=== PATIENT | female | born 1995 | race Caucasian/White ===

== ENCOUNTER → 2020-12-10 10:45 | Outpatient (CLI) | payer OTHER, BC, SELFPAY ==
[2020-11-27 08:24] VITALS: BMI 40.9
--- NOTE | 2020-12-10 10:46 | MRI_ITS ---
STUDY: EXAMINATION - MRV BRAIN WITHOUT CONTRAST REASON FOR EXAM: Female, 25 years old. Pseudotumor Cerebri- comps from [facility] should be available TECHNIQUE: 3D [id number] (TOF) imaging was performed in a 1.5 mansi MRI scanner. COMPARISON: MRI brain with and without contrast 11/13/2020. FINDINGS: Normal flow within the superior sagittal sinus. Normal flow within the superficial cortical veins. Normal flow within the paired internal cerebral veins, vein of Godwin and straight sinus. Normal flow within the bilateral transverse and sigmoid sinuses. Normal flow within the bilateral jugular bulbs. Focal DVA in the right cerebellar hemisphere is also present on the MRI brain with and without contrast 11/13/2020. MRI/MRV Head Without Contrast IMPRESSION: 1. Normal unenhanced MRV of the brain. 2. Focal DVA (developmental venous anomaly) in the right cerebellar hemisphere, a developmental variation of normal. This is unchanged when compared to outside MRI brain with and without contrast of 11/13/2020 Electronically Signed: Pancho Guerrero MD at 15:16 EDT , Service support ,
== END ==
PROVIDERS: PCP Family Medicine; Referring Provider Psychiatry & Neurology Neurology; Visit Provider Psychiatry & Neurology Neurology
DX: G93.2 Benign intracranial hypertension (principal)
CPT/HCPCS: 70544

== ENCOUNTER → 2020-12-11 09:07 | Outpatient (CLI) | payer BC, OTHER, SELFPAY ==
[2020-11-27 08:24] VITALS: BMI 40.9
[2020-12-11 10:28] LABS: Hematocrit 44.9 % (37-47); Hemoglobin 14.6 g/dL (12.0-15.0); Mean Corp Hgb Conc 32.5 g/dL (32-36); Mean Corpuscular Hgb 28.3 pg (27.0-32.0); Mean Corpuscular Volume 87.2 fL (81-99); Mean Platelet Vol. 12.2 fl (6.2-12.0); Platelet Count 317 K/mm3 (150-450); RBC Distribution Width CV 13.4 % (11.6-14.6); RBC Distribution Width SD 42.8 fl (35.1-43.9); Red Blood Count 5.15 M/mm3 (4.2-5.4); White Blood Count 8.4 K/mm3 (4.4-11.0)
[2020-12-11 11:05] LABS: AST(SGOT) 12 U/L (15-37); Alanine Aminotransfer ALT/SGPT 25 U/L (13-56); Albumin, Serum 3.7 g/dL (3.2-5.0); Alkaline Phosphatase 99 U/L (45-117); Anion Gap 6 (5-15); BUN 12 mg/dL (7-18); BUN/Creat Ratio 14.8 RATIO (10-20); Calcium,Total 8.9 mg/dL (8.5-10.1); Chloride 111 mmol/L (98-107); Creatinine, Serum 0.81 mg/dL (0.55-1.02); EST Glomerular Filtration Rate 92 mL/min (>60); Est Glom Filt Rate - Afr Amer 111 mL/min (>60); Globulin 3.8 g/dL (2.2-4.2); Glucose 83 mg/dL (74-106); Protein, Total 7.5 g/dL (6.4-8.2); Sodium Level 140 mmol/L (136-145); Thyroid Stim Hormone (TSH) 0.68 uIU/mL (0.358-3.74)
== END ==
PROVIDERS: PCP Family Medicine; Referring Provider Psychiatry & Neurology Neurology; Visit Provider Psychiatry & Neurology Neurology
DX: G93.2 Benign intracranial hypertension (principal); E66.9 Obesity, unspecified
CPT/HCPCS: 36415; 80053; 84443; 85027

== ENCOUNTER 2021-12-19 02:21 | Emergency (ER) | payer BC, SELFPAY ==
[2021-12-19 02:23] VITALS: BP 103/63; PULSE 138; RESP 16; TEMP 37.4; O2SAT 100; BMI 41.5
--- NOTE | 2021-12-19 02:41 | EX.ED.DYSGE1 ---
HPI History of Present Illness Chief Complaint: General Illness Detail of Chief Complaint: Fever that started yesterday Informant: patient Narrative Narrative: Patient presents with a fever that started last evening. She states that she had some chills around 2 PM yesterday. Patient recalls having a tick bite to her right calf 2 days ago but there is no evidence of a rash. She is had some nausea but no vomiting. She denies diarrhea. She describes minimal sore throat. She denies cough. She does complain of a headache and body aches. Prior similar symptoms: No PFSH PFSH Medical History (Updated 12/19/21 @ 03:[address] Margarito Lainez, DO) Asthma History of lumbar puncture Polycystic disease, ovaries Home Medications NK 12/19/21 [History Last Taken Unknown] doxycycline monohydrate 100 mg PO BID #28 capsule 12/19/21 [Rx Last Taken Unknown] sulfamethoxazole-trimethoprim 1 tab PO BID #6 tablet 12/19/21 [Rx Last Taken Unknown] Allergy/AdvReac Type Severity Reaction Status Date / Time acetaminophen AdvReac Unknown Unknown Verified 12/19/21 02:25 Family History (Updated 11/27/20 @ 08:20 by Cyndee Hernandez) Brother Pseudotumor cerebri Grandfather CVA (cerebral vascular accident) Social History (Updated 11/27/20 @ 08:19 by Cyndee Hernandez) Smoking Status: Never smoker Electronic Cigarette Use: not used second hand exposure: Yes alcohol intake: current alcohol intake frequency: holidays/special occasions only substance use type: does not use ROS ROS ED Constitutional Constitutional ED: Reports systems reviewed and no addt'l complaints, except as documented and fever(s); Denies body ache(s), change in weight or chills Eyes Eyes: Denies acute decrease in peripheral vision, change in vision, double vision or loss of vision ENT ENT ED: Reports none and sore throat; Denies ear pain, lip swelling, loss taste/smell, neck pain or otalgia Cardiovascular Cardiovascular: Reports none; Denies abdominal pain, chest pain with activity, leg edema, lightheadedness, palpitations, rapid heart rate or syncope Respiratory/Chest Respiratory/Chest: Reports none; Denies change in mental status, dry cough, dyspnea, hemoptysis, shortness of breath at rest or shortness of breath with exertion Gastrointestinal Gastrointestinal: Reports none; Denies abdominal pain, change in stool character, diarrhea, hematemesis, hematochezia, melena, rectal bleeding or vomiting Genitourinary Genitourinary ED: Reports none; Denies abdominal discomfort, anuria, dysuria, genital pain or polyuria Musculoskeletal Musculoskeletal: Reports none and myalgias; Denies arthralgias, back pain, difficulty walking, extremity pain or muscle weakness Integumentary Reports none; Denies abscess or rash Neurologic Neurologic: Reports none and headache(s); Denies abnormal gait, confusion, focal weakness, frequent falls, loss of vision, numbness, paresthesias, radicular pain, vertigo or weakness Psychiatric Psychiatric: Reports systems reviewed and no addt'l complaints, except as documented and none; Denies behavioral changes, confusion, difficulty concentrating, hallucinations, suicidal ideation, tactile hallucinations or visual hallucinations Endocrine Endocrinology: Denies none, cold intolerance, excessive sweating, fatigue or heat intolerance Hematologic/Lymphatic Hematologic/Lymphatic: Reports none; Denies anemia, easy bleeding or easy bruising Allergic/Immunologic Allergic/Immunologic ED: Denies as per HPI, none, lip swelling, mouth swelling, throat swelling, tongue swelling or hives EXAM Physical Exam Const Vital Signs: 12/19/21 02:23 12/19/21 02:27 Temperature 99.3 F H Temperature Source Oral Pulse Rate 138 H Respiratory Rate 16 Respiratory Effort Normal Non-Labored Respiratory Pattern Normal Blood Pressure 103/63 Blood Pressure Mean 76 Pulse Ox 100 Oxygen Delivery Method Room Air Positive well nourished and well developed General Appearance ED: well developed and NAD HEENT Reports TM's clear and moist mucous membranes normocephalic and atraumatic; Negative for trauma or tenderness Tympanic Membrane ED: Yes TM's clear Eyes PERRL and EOMs intact bilaterally General Eye ED: Negative for pale conjunctiva or scleral icterus Neck no lymphadenopathy, supple and no JVD General: Negative for tenderness Chest Wall inspection of chest normal and palpation of chest normal Chest: Negative for tenderness Resp normal respiratory effort and clear to auscultation bilaterally Effort and Inspection: Negative for respiratory distress or pain with movement Auscultation: Negative for rhonchi, wheezes or diminished lung sounds Cardio regular rate, regular rhythm, S1 normal heart sound, S2 normal heart sound and no murmurs Peripheral Pulses: pulses 2+ throughout GI normal to inspection, nondistended, normoactive bowel sounds, soft to palpation, non-tender, non-distended and no masses Back/Spine no CVA tenderness and no thoracic nor lumbar tenderness Extremity Extremity Narrative: Evaluation of the right calf reveals no evidence of rash or bull's-eye sign. General Extremety ED: Negative for edema General Extremity: Negative for edema Neuro oriented x3, CN's II-XII intact bilaterally, no sensory deficits noted and gait normal Sensorium / Orientation: awake, alert, oriented to person, oriented to place and oriented to time Motor Exam: strength 5/5 throughout and strength abnormal Psych mental status grossly normal Skin no rashes or lesions noted and no wounds MDM MDM MDM Narrative Medical decision making narrative: Patient had an influenza screen and a COVID test that were both negative. Urinalysis was significant for 500 cassette esterase as well as 50-100 WBCs and +4 bacteria. Urine culture was sent. Specimen unfortunately also had 25-50 squamous epithelial cells. Patient will be treated with Bactrim and Pyridium. Patient advised to follow-up with her primary care physician in 3 to 5 days to get her culture results and Lyme titer results. Patient will also start doxycycline given her tick exposure. Lab Data Attestation: I reviewed the patient's lab results. Labs: Laboratory Results - last 24 hr 12/19/21 02:45 Urine Color Yellow Urine Clarity Cloudy Urine pH 7.0 Ur Specific [place] 1.015 Urine Protein 15 H Urine Glucose (UA) Normal Urine Ketones Negative Urine Occult Blood 150 H Urine Nitrite Negative Urine Bilirubin Negative Urine Urobilinogen Normal Ur Leukocyte Esterase 500 H Urine RBC 10-25 SEEN Urine WBC 50-100 SEEN Ur Squamous Epith Cells 25-50 SEEN Urine Bacteria 4+ Urine Mucus 0 SEEN Discharge Plan Triage Chief Complaint: General Illness ED Provider: Margarito Lainez Dx/Rx/DC Orders Clinical Impression: UTI (urinary tract infection), Tick bite Instructions: ED Tick Bite, Abx Tx, ED CYSTITIS Female Adult Prescriptions: New sulfamethoxazole-trimethoprim [sulfamethoxazole-trimethoprim] 1 TABLET tablet 1 tab PO BID Qty: 6 RF: 0 doxycycline monohydrate 100 MG capsule 100 mg PO BID Qty: 28 RF: 0 No Action NK RF: 0 Primary Care Provider: Russ Euceda Referrals: Russ Euceda DO [Primary Care Provider] - 3-5 Days Disposition Disposition: Home, Self Care
[2021-12-19 03:01] LABS: Color, Urine Yellow (Yellow); Glucose, Dipstick Normal (Normal); Ketone-Dipstick Negative (Negative); Leukocyte Esterase-Dipstick 500 /ul (Negative); Mucous, Urine 0 SEEN /hpf (<or=2+); Nitrite-Dipstick Negative (Negative); Occult Blood-Urine 150 /ul (Negative); Protein-Dipstick 15 mg/dl (Negative); Specific Gravity, Urine 1.015 (1.002-1.030); Urine Bilirubin Dipstick Negative (Negative); Urine Clarity Cloudy (Clear); Urine Urobilinogen Normal (Normal)
[2021-12-19 03:25] LABS: Bacteria 4+ /hpf (None Seen); Red Blood Cells-Urine 10-25 SEEN /hpf (0-5); Squamous Epithelial Cells - UA 25-50 SEEN /hpf (5-10); White Blood Cells 50-100 SEEN /hpf (0-5)
[2021-12-19 03:47] LABS: Lyme Ab Screen Interpretation REF LAB
[2021-12-19] MEDS: Phenazopyridine 95 MG Tablet 190 MG PO (03:47)
[2021-12-19] MEDS: Doxycycline 100 MG CAPSULE PO (03:48)
[2021-12-19] MEDS: Smz/Tmp Ds Tablet 1 TABLET PO (03:48)
[2021-12-19 03:51] VITALS: BP 102/60; PULSE 110; RESP 16; O2SAT 96
[2021-12-20 20:46] LABS: Lyme Scn Total Ab w/Rflx Negative (Negative)
== END 2021-12-19 03:51 | disposition home or self-care (01) ==
PROVIDERS: Emergency Provider Emergency Medicine; PCP Family Medicine; Visit Provider Emergency Medicine
DX: N39.0 Urinary tract infection, site not specified (principal); J45.909 Unspecified asthma, uncomplicated; E28.2 Polycystic ovarian syndrome; S80.861A Insect bite (nonvenomous), right lower leg, initial encounter; W57.XXXA Bitten or stung by nonvenomous insect and other nonvenomous arthropods, initial encounter
CPT/HCPCS: 81001; 86618; 87086; 87088; 87428; 99283

== ENCOUNTER 2022-06-24 17:03 | Outpatient (CLI) | payer BC, SELFPAY ==
[2022-06-24 17:21] LABS: Hematocrit 41.8 % (37-47); Hemoglobin 13.8 g/dL (12.0-15.0); Mean Corpuscular Hgb 27.7 pg (27.0-32.0); Mean Corpuscular Volume 83.9 fL (81-99); Mean Platelet Vol. 11.3 fl (6.2-12.0); Platelet Count 312 K/mm3 (150-450); RBC Distribution Width SD 39.8 fl (35.1-43.9); Red Blood Count 4.98 M/mm3 (4.2-5.4); White Blood Count 10.5 K/mm3 (4.4-11.0)
[2022-06-24 17:50] LABS: Vitamin B12 501 pg/mL (211-911); Vitamin D,25 Hydroxy 9.5 ng/mL
[2022-06-24 17:56] LABS: Anion Gap 8 (5-15); BUN 11 mg/dL (7-18); BUN/Creat Ratio 12.4 RATIO (10-20); Calcium,Total 8.3 mg/dL (8.5-10.1); Chloride 108 mmol/L (98-107); Cholesterol 128 mg/dL (200); Creatinine, Serum 0.89 mg/dL (0.55-1.02); EST Glomerular Filtration Rate 82 mL/min (>60); Est Glom Filt Rate - Afr Amer 99 mL/min (>60); Ferritin 53 ng/mL (8-252); Glucose 101 mg/dL (74-106); High Density Lipoprotein 36 mg/dL; Iron 93 ug/dL (50-170); Iron Binding Capacity,Total 289 ug/dL (250-450); Potassium 3.9 mmol/L (3.5-5.1); Sodium Level 141 mmol/L (136-145); Triglycerides 89 mg/dL; Very Low Density Lipoprotein 18 mg/dL (5-40)
== END 2022-06-24 23:59 | disposition home or self-care (01) ==
LOC: LAB 17:04
PROVIDERS: PCP Family Medicine; Visit Provider Physician Assistant
DX: Z79.899 Other long term (current) drug therapy (principal)
CPT/HCPCS: 36415; 80048; 80061; 82306; 82607; 82728; 82746; 83540; 83550; 84443; 85027

== ENCOUNTER 2023-05-06 05:42 | Emergency (ER) | payer BC, SELFPAY ==
[2023-05-06 05:45] VITALS: BP 130/77; PULSE 94; RESP 18; TEMP 35.8; O2SAT 95; BMI 45.9
--- NOTE | 2023-05-06 05:56 | CT_ITS ---
EXAM: CT ABDOMEN AND PELVIS WITH INTRAVENOUS CONTRAST CLINICAL INDICATION: abdominal pain, diarrhea TECHNIQUE: Helically acquired images were obtained of the abdomen and pelvis with intravenous contrast. This CT exam was performed using one or more of the following dose reduction techniques: automated exposure control, adjustment of the mA and/or kV according to patient size, and/or use of iterative reconstruction technique. CONTRAST: IV 100mL Isovue-370 RADIATION DOSE: Total DLP: 1184.96 mGy-cm. COMPARISON: No relevant prior studies available. FINDINGS: LOWER THORAX: The visualized lung bases are clear. No coronary artery calcification is visualized. No significant pericardial effusion. ABDOMEN: LIVER: Elongated right hepatic lobe measuring 19 cm in cephalocaudal. Homogeneous. No focal mass. GALLBLADDER AND BILE DUCTS: Unremarkable. No calcified gallstones. No gallbladder distention or wall edema. No intra- or extrahepatic biliary ductal dilation. PANCREAS: Unremarkable. No focal cystic or solid mass. SPLEEN: Spleen is upper normal in size. ADRENALS: Unremarkable. No nodules. KIDNEYS AND URETERS: Unremarkable. Normal renal size and position. No hydronephrosis. No renal or obstructing ureteral stones. STOMACH AND BOWEL: No gastric mural thickening, periduodenal inflammatory changes or distended small bowel loops. No findings of small bowel obstruction or colitis. Numerous small nonspecific mesenteric lymph nodes are present. Several small lymph nodes are also seen medial to the cecum. PELVIS: APPENDIX: Normal. No evidence of acute appendicitis. BLADDER: Urinary bladder is nearly empty. REPRODUCTIVE: Unremarkable as visualized. No adnexal mass. ABDOMEN and PELVIS: INTRAPERITONEAL SPACE: Unremarkable. No ascites or other fluid collection. No free air. BONES/JOINTS: Unremarkable. No suspicious lytic or blastic abnormality. No acute osseous abnormality. SOFT TISSUES: Tiny fat-filled umbilical hernia. VASCULATURE: Normal caliber abdominal aorta. LYMPH NODES: No para-aortic adenopathy. CT/Abdomen/Pelvis W IV Cont ONLY IMPRESSION: 1. Normal appendix. 2. Numerous small mesenteric and pericecal lymph nodes as can be seen with mesenteric adenitis. 3. No findings of small bowel obstruction or colitis. Electronically Signed: Wojciech Naranjo MD at 6:55 EDT ,
--- NOTE | 2023-05-06 05:56 | ED.VIS.GI ---
HPI HPI - GI History of Present Illness Chief Complaint: Nausea/Vomiting Narrative Narrative: 27-year-old female past medical history of depression and anxiety presents with nausea, vomiting, diarrhea, and abdominal pain that she has had for the last 3 days. She states she and her both got food poisoning as they ate pizza on Thursday, and symptoms started Thursday morning. Her had diarrhea for approximately 24 hours, but patient states that she has had nausea, vomiting, diarrhea, and diffuse crampy abdominal pain for the last 3 days. Has come to the point where she is nauseated but cannot throw up anymore. She is having loose, watery stool without any blood in her stool. No exacerbating or alleviating factors to her abdominal pain. She denies any significant past abdominal surgeries. Her last menstrual period was at the end of last month, just 1 to 2 weeks ago. [facility] Medical History Asthma History of lumbar puncture Polycystic disease, ovaries Home Medications bupropion HCl 150 mg 24 hr tablet, extended release 150 mg PO DAILY 05/06/23 [History Last Taken Unknown] ondansetron 4 mg disintegrating tablet 4 mg PO Q6H PRN nausea and vomiting #15 tabs 05/06/23 [Rx Last Taken Unknown] Allergy/AdvReac Type Severity Reaction Status Date / Time acetaminophen AdvReac Unknown Unknown Verified 05/06/23 05:43 Family History Brother Pseudotumor cerebri Grandfather CVA (cerebral vascular accident) Surgical History no surgical history Social History Smoking Status: Never smoker Electronic Cigarette Use: not used second hand exposure: Yes alcohol intake: current alcohol intake frequency: holidays/special occasions only substance use type: does not use ROS ROS ED ROS Narrative Constitutional: No fever, no chills. HEENT: No sore throat. No neck pain. No loss of vision. No rhinorrhea. Cardiovascular: No chest pain. No palpitations. No pedal edema. Respiratory: No cough, no shortness of breath. Abdominal: Diffuse, crampy abdominal pain. Positive nausea. No vomiting in the last 24 hours. Positive nonbloody diarrhea. Genitourinary: No dysuria. No hematuria. Musculoskeletal: No myalgias. No arthralgias. Neurologic: No headaches. No dizziness. No lightheadedness. Skin: No rash. No change in color. Psychiatric: No depression. No anxiety. EXAM Physical Exam Narrative Exam Narrative: Afebrile. Vital signs noted. HEENT: Normocephalic. Atraumatic. PERRL, EOMI. Neck soft and supple. No point tenderness or step off. Cardiovascular: Regular rate and rhythm. No murmurs, rubs, or gallops appreciated. Respiratory: No tachypnea. Lungs clear to auscultation bilaterally. Gastrointestinal: Abdomen soft, mild, diffuse tenderness with normoactive bowel sounds. No rebound or guarding. Neurological: Awake. Alert. Nonfocal, nonlateralizing. Skin: No rash. Normal color. No pallor. Musculoskeletal: No pedal edema. Full range of motion extremities. Const Vital Signs: 05/06/23 05:45 Temperature 96.5 F L Temperature Source Temporal Pulse Rate 94 Respiratory Rate 18 Blood Pressure 130/77 H Blood Pressure Mean 94 Pulse Ox 95 Oxygen Delivery Method Room Air MDM MDM MDM Narrative Medical decision making narrative: In the differential diagnosis is pancreatitis versus colitis versus bowel obstruction. I have low suspicion for as she states she has not been sexually active since her last menses. However, serum will be obtained along with CBC, CMP, and lipase. I do feel that CT imaging with IV contrast is indicated. She was bolused normal saline 1 L intravenously to take care of any dehydration or intravascular volume depletion. She was also administered ondansetron for her nausea that is continuing. She states she took Imodium prior to arrival and she thinks that it is kicking in. I reviewed her laboratory work and she has slight leukocytosis at 13.4 which I think is nonspecific and could be demargination from diarrhea and/or vomiting. Her hemoglobin is normal at 13.8, hematocrit normal at 43.5, platelet count normal at 312. Electrolyte panel is grossly unremarkable except for glucose appropriately elevated at 129 with a normal anion gap of 5, sodium normal at 139, potassium normal at 3.7, chloride slightly elevated at 109 which I think is nonspecific, BUN normal at 10 with creatinine normal at 0.90. Serum test is negative. Lipase is also negative at 27 so I do not have concern for pancreatitis. CT of the abdomen and pelvis images were reviewed. I reviewed the radiology report which shows a normal appendix. It is consistent with mesenteric adenitis, but no evidence of a bowel obstruction or colitis for which I think antibiotics would be indicated. She will be given Bentyl 20 mg orally here and a prescription written for Zofran for continued symptomatic relief of her nausea. She was referred to a primary care provider on-call. At this point in time, I do not feel she requires observation. She was given a note to be off work today, and to follow-up with a primary care provider. Return instructions to the emergency department were reviewed. Disposition is discharged home in stable condition. History & Record Review Discussion w/independent historian: Patient and Family Additional record(s) reviewed:: Prior outpatient record and Prior ED visit Lab Data Attestation: I reviewed the patient's lab results. Labs: Laboratory Results - last 24 hr 05/06/23 06:00 WBC 13.4 H RBC 5.07 Hgb 13.8 Hct 43.5 MCV 85.8 MCH 27.2 MCHC 31.7 L RDW Std Deviation 41.9 RDW Coeff of Bc 13.4 Plt Count 312 MPV 11.4 Immature Gran % (Auto) 0.400 Neut % (Auto) 76.5 H Lymph % (Auto) 15.8 L [place] % (Auto) 5.2 Eos % (Auto) 1.9 Baso % (Auto) 0.2 Absolute Neuts (auto) 10.2 H Absolute Lymphs (auto) 2.12 Nucleated RBC % 0 Sodium 139 Potassium 3.7 Chloride 109 H Carbon Dioxide 25.0 Anion Gap 5 BUN 10 Creatinine 0.90 Estim Creat Clear Calc 78.36 Est GFR (MDRD) Af Amer 98 Est GFR (MDRD) Non-Af 81 BUN/Creatinine Ratio 11.2 Glucose 129 H Calcium 8.5 Total Bilirubin 0.40 AST 11 L ALT 26 Alkaline Phosphatase 94 Total Protein 7.1 Albumin 3.4 Globulin 3.7 Albumin/Globulin Ratio 0.9 Lipase 27 Serum , Qual NEGATIVE Radiography Diagnostic Testing: Clinical Impression(s) from Imaging Studies Abdomen/Pelvis CT 05/06/23 05:56 IMPRESSION: 1. Normal appendix. 2. Numerous small mesenteric and pericecal lymph nodes as can be seen with mesenteric adenitis. 3. No findings of small bowel obstruction or colitis. Electronically Signed: Wojciech Naranjo MD at 6:55 EDT , Discharge Plan Triage Chief Complaint: Nausea/Vomiting ED Provider: Pancho Ngo Dx/Rx/DC Orders Clinical Impression: Nausea, vomiting, and diarrhea, Abdominal cramping, Mesenteric adenitis Instructions: ED Abdominal Pain Unkn Cause Fem, ED Diet Vomiting Diarrhea, ED Adenitis, Mesenteric, ED Vomiting and Diarrhea ... Prescriptions: New ondansetron 4 mg tablet,disintegrating 4 mg PO Q6H PRN (Reason: nausea and vomiting) Qty: 15 0RF No Action bupropion HCl 150 mg tablet extended release 24 hr 150 mg PO DAILY Patient Comments: take 1 tablet by mouth every morning Stand Alone Forms: ED Work / School Excuse Primary Care Provider: Care Physician,No Primary Referrals: Russ Molina MD [Med Staff - Active Staff] - 3-5 Days if not improving Care Physician,No Primary [Primary Care Provider] - Disposition Disposition: Home, Self Care
[2023-05-06] MEDS: 0.9% Normal Saline (1000mL) 1,000 ML 1000 ML IV (06:01)
[2023-05-06] MEDS: Ondansetron 4 MG/2 ML Vial IV (06:01)
[2023-05-06 06:07] LABS: Absolute Lymphocyte Count 2.12 X10^3/uL (0.83-4.51); Absolute Neutrophil Count 10.2 X10^3/uL (2.0-7.7); Basophil# 0.03 X10^3/uL; Basophil% 0.2 % (0-1); Eosinophil# 0.25 X10^3/uL; Eosinophils% 1.9 % (0-5); Hematocrit 43.5 % (37-47); Hemoglobin 13.8 g/dL (12.0-15.0); Lymphocyte # 2.12 X10^3/ul (0.83-4.51); Lymphocyte % 15.8 % (19-41); Mean Corp Hgb Conc 31.7 g/dL (32-36); Mean Corpuscular Hgb 27.2 pg (27.0-32.0); Mean Corpuscular Volume 85.8 fL (81-99); Mean Platelet Vol. 11.4 fl (6.2-12.0); Monocyte# 0.69 X10^3/uL; Monocyte% 5.2 % (0-10); NRBC Flagged by Analyzer 0 % (0-5); Neutrophil # 10.24 X10^3/uL (2.7-7.7); Neutrophil % 76.5 % (47-70); Platelet Count 312 K/mm3 (150-450); RBC Distribution Width CV 13.4 % (11.6-14.6); RBC Distribution Width SD 41.9 fl (35.1-43.9); Red Blood Count 5.07 M/mm3 (4.2-5.4); White Blood Count 13.4 K/mm3 (4.4-11.0)
[2023-05-06 06:26] LABS: Internal QC Validated? YES +Cl - CLEAR BKGD; Pregnancy, Serum, hCG Quali. NEGATIVE Negative
[2023-05-06 06:34] LABS: ALB/GLOB Ratio 0.9 RATIO (0.9-2.4); AST(SGOT) 11 U/L (15-37); Alanine Aminotransfer ALT/SGPT 26 U/L (13-56); Albumin, Serum 3.4 g/dL (3.2-5.0); Alkaline Phosphatase 94 U/L (45-117); Anion Gap 5 (5-15); BUN 10 mg/dL (7-18); BUN/Creat Ratio 11.2 RATIO (10-20); Calcium,Total 8.5 mg/dL (8.5-10.1); Chloride 109 mmol/L (98-107); EST Glomerular Filtration Rate 81 mL/min (>60); Est Glom Filt Rate - Afr Amer 98 mL/min (>60); Estimated Creatinine Clearance 78.36 ml/min; Globulin 3.7 g/dL (2.2-4.2); Glucose 129 mg/dL (74-106); Lipase 27 U/L (13-75); Potassium 3.7 mmol/L (3.5-5.1); Protein, Total 7.1 g/dL (6.4-8.2); Sodium Level 139 mmol/L (136-145)
[2023-05-06] MEDS: Dicyclomine 10 MG Capsule 20 MG PO (07:24)
[2023-05-06 07:26] VITALS: PULSE 80; RESP 17
== END 2023-05-06 07:27 | disposition home or self-care (01) ==
PROVIDERS: Emergency Provider Emergency Medicine; Visit Provider Emergency Medicine
DX: R11.2 Nausea with vomiting, unspecified (principal); I88.0 Nonspecific mesenteric lymphadenitis; R19.7 Diarrhea, unspecified; R10.9 Unspecified abdominal pain; F32.A Depression, unspecified; Z79.899 Other long term (current) drug therapy; F41.9 Anxiety disorder, unspecified
CPT/HCPCS: 74177; 80053; 83690; 84703; 85025; 96361; 96374; 99283; J7030; Q9967; A4216; J2405

== ENCOUNTER → 2023-11-27 | Outpatient (CLI) | payer BC, SELFPAY ==
[2023-11-27 09:37] LABS: Hematocrit 42.4 % (37-47); Hemoglobin 13.6 g/dL (12.0-15.0); Mean Corp Hgb Conc 32.1 g/dL (32-36); Mean Corpuscular Hgb 27.6 pg (27.0-32.0); Mean Corpuscular Volume 86.2 fL (81-99); Mean Platelet Vol. 11.8 fl (6.2-12.0); Platelet Count 303 K/mm3 (150-450); RBC Distribution Width CV 13.8 % (11.6-14.6); RBC Distribution Width SD 43.2 fl (35.1-43.9); Red Blood Count 4.92 M/mm3 (4.2-5.4)
[2023-11-27 09:57] LABS: Hemoglobin A1c 4.8 % (3.8-5.6)
[2023-11-27 10:08] LABS: Vitamin B12 421 pg/mL (211-911); Vitamin D,25 Hydroxy 20.2 ng/mL
[2023-11-27 10:11] LABS: Anion Gap 6 (5-15); BUN 16 mg/dL (7-18); BUN/Creat Ratio 15.7 RATIO (10-20); Calcium,Total 8.5 mg/dL (8.5-10.1); Chloride 107 mmol/L (98-107); Cholesterol 146 mg/dL (200); Creatinine, Serum 1.02 mg/dL (0.55-1.02); EST Glomerular Filtration Rate 69 mL/min (>60); Est Glom Filt Rate - Afr Amer 84 mL/min (>60); Glucose 91 mg/dL (74-106); High Density Lipoprotein 33 mg/dL; Potassium 3.6 mmol/L (3.5-5.1); Sodium Level 139 mmol/L (136-145); Triglycerides 161 mg/dL; Very Low Density Lipoprotein 32 mg/dL (5-40)
== END | disposition home or self-care (01) ==
LOC: LAB 08:33
PROVIDERS: Referring Provider Physician Assistant; Visit Provider Physician Assistant
DX: Z79.899 Other long term (current) drug therapy (principal)
CPT/HCPCS: 36415; 80048; 80061; 82306; 82607; 83036; 85027

== ENCOUNTER → 2023-12-03 | Outpatient (CLI) | payer BC, SELFPAY ==
--- NOTE | 2023-12-03 13:44 | EKG12_ITS ---
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 Rate : 090 BPM Atrial Rate : 090 BPM P-R Int : 142 ms QRS Dur : 084 ms QT Int : 386 ms P-R-T Axes : 056 051 040 degrees QTc Int : 472 ms Normal sinus rhythm Normal ECG Confirmed by TONIA CONROY, FEI ([id number]), scientific publications editor EMERITA HARRINGTON ([id number]) on 12/04/2023 6:39:34 AM Referred By: Tiara Soares Confirmed By:FEI RANDALL MD
== END | disposition home or self-care (01) ==
LOC: PSN 13:42
PROVIDERS: Referring Provider Physician Assistant; Visit Provider Physician Assistant
DX: Z79.899 Other long term (current) drug therapy (principal)
CPT/HCPCS: 93005

== ENCOUNTER 2024-09-02 21:49 | Inpatient (IN) | payer BC, SELFPAY ==
[2024-09-02 21:45] VITALS: BMI 44.8
[2024-09-02 22:09] VITALS: BP 149/92; PULSE 100; PULSE 103; RESP 16; TEMP 36.6; O2SAT 97
[2024-09-02 22:29] VITALS: BP 134/90; PULSE 95
[2024-09-02 22:42] LABS: Absolute Lymphocyte Count 2.25 X10^3/uL (0.83-4.51); Absolute Neutrophil Count 9.8 X10^3/uL (2.0-7.7); Basophil# 0.05 X10^3/uL; Basophil% 0.4 % (0-1); Eosinophil# 0.07 X10^3/uL; Eosinophils% 0.5 % (0-5); Hematocrit 38.2 % (37-47); Lymphocyte # 2.25 X10^3/ul (0.83-4.51); Lymphocyte % 17.2 % (19-41); Mean Corpuscular Hgb 29.8 pg (27.0-32.0); Mean Corpuscular Volume 87.6 fL (81-99); Mean Platelet Vol. 14.2 fl (6.2-12.0); Monocyte# 0.79 X10^3/uL; NRBC Flagged by Analyzer 0 % (0-5); Neutrophil # 9.82 X10^3/uL (2.7-7.7); Neutrophil % 75.2 % (47-70); Platelet Count 200 K/mm3 (150-450); RBC Distribution Width CV 14.9 % (11.6-14.6); RBC Distribution Width SD 47.7 fl (35.1-43.9); Red Blood Count 4.36 M/mm3 (4.2-5.4); White Blood Count 13.1 K/mm3 (4.4-11.0)
[2024-09-02] MEDS: miSOPROStol 25 MCG TABLET PO (23:00)
[2024-09-02 23:13] LABS: Bedside Glucose 87 mg/dL (74-106)
[2024-09-02] MEDS: Lactated Ringers 1,000 ML 999 ML IV (23:27)
[2024-09-03] VITALS (36 sets, daily range): BP systolic 110–169; BP diastolic 56–109; PULSE 83–155; RESP 15–16; TEMP 36.2–37.1; O2SAT 88–99
[2024-09-03] MEDS: Escitalopram Oxalate 10 MG Tablet PO (00:30)
[2024-09-03] MEDS: busPIRone 5 MG Tablet 10 MG PO ×3 (00:30→16:14)
[2024-09-03] MEDS: buPROPion (XL) 300 MG TABLET.XL PO (00:31)
[2024-09-03 00:44] LABS: Bedside Glucose 71 mg/dL (74-106)
[2024-09-03 01:59] LABS: Syphilis Antibodies Non-reactive
[2024-09-03] MEDS: miSOPROStol 25 MCG TABLET PO ×2 (03:44→07:56)
[2024-09-03] MEDS: Acetaminophen 500 MG Tablet PO ×2 (03:49→22:56)
[2024-09-03 04:28] LABS: Bedside Glucose 76 mg/dL (74-106)
--- NOTE | 2024-09-03 06:11 | PCM.HP.OB ---
HPI - General General Date of Admission: 09/02/24 HPI Narrative MAGGI AGUILAR, is a 28 F G1 at 38.3 weeks gestation who presents for induction of labor for GHTN, GDM, Obesity, and history of Pseudotumor cerebri. Maternal Data Information BRANT Calculator Estimated Delivery Date Method Current WG Current Estimate 09/14/24 Manual 38w 3d PFSH PFSH Medical History (Updated 09/03/24 @ 06:26 by Brianna Aceves CNM) Gestational HTN Anemia Restless legs Injury of back Gastric reflux Gestational diabetes Non-smoker History of lumbar puncture Polycystic disease, ovaries Asthma Home Medications ?Medication ?Instructions ?Recorded ?Last Taken ?Type bupropion HCl 150 mg 24 hr tablet, 300 mg PO DAILY anxiety/depression 05/06/23 09/01/24 22:00 History extended release ondansetron 4 mg disintegrating 4 mg PO Q6H PRN nausea and 05/06/23 09/01/24 08:00 Rx tablet vomiting #15 tabs escitalopram oxalate 20 mg tablet 10 mg PO DAILY anxiety/depression 08/16/24 09/01/24 22:00 History buspirone 10 mg tablet 10 mg PO 3XD anxiety/depression 09/02/24 09/01/24 22:00 History Allergy/AdvReac Type Severity Reaction Status Date / Time fluoxetine (From Prozac) Allergy Swelling Verified 09/02/24 22:17 Family History Brother Pseudotumor cerebri Grandfather CVA (cerebral vascular accident) Social History Smoking Status: Never smoker Electronic Cigarette Use: not used second hand exposure: Yes alcohol intake: current alcohol intake frequency: holidays/special occasions only substance use type: does not use History Elective abortions Hx Para 0 Spontaneous abortions Hx # Term Pregnancies Ectopic pregnancies Hx # Pregnancies Multiple births # of living children NST FHR Rate Baby A Baseline: 125 Variability:: Moderate Accelerations:: 15 x 15 Decelerations:: None NST Reactive:: Yes FHR Category:: Category I Uterine Activity:: TOCO reading every 2-3 minutes ROS Eyes Eyes: Denies blurry vision, change in vision or spots in vision ENT HEENT: Denies dizziness or headache(s) Cardiovascular Cardiovascular: Denies abdominal pain, chest pain or dyspnea Respiratory/Chest Respiratory/Chest: Denies cough, dyspnea, shortness of breath at rest or shortness of breath with exertion Gastrointestinal Gastrointestinal: Denies abdominal pain, diarrhea or vomiting Genitourinary Genitourinary: Denies change in urinary stream, difficulty urinating or dysuria Musculoskeletal Musculoskeletal: Reports none Integumentary Integumentary: Denies rash Neurologic Neurologic: Denies dizziness, headache(s), memory loss or weakness Psychiatric Psychiatric: Reports none Vital Signs Vital Signs Vital Signs: 09/02/24 22:09 09/02/24 22:09 09/02/24 22:09 Temperature Temperature Source Pulse Rate 100 103 H Respiratory Rate Blood Pressure 149/92 H BP Systolic 149 BP Diastolic 92 Pulse Ox 09/02/24 22:09 09/02/24 22:09 09/02/24 22:09 Temperature Temperature Source Temporal Pulse Rate Respiratory Rate 16 Blood Pressure BP Systolic BP Diastolic Pulse Ox 97 09/02/24 22:09 09/02/24 22:29 09/02/24 22:29 Temperature 97.9 F Temperature Source Pulse Rate 95 Respiratory Rate Blood Pressure 134/90 H BP Systolic 134 BP Diastolic 90 Pulse Ox 09/03/24 03:31 09/03/24 03:31 09/03/24 03:31 Temperature Temperature Source Temporal Pulse Rate 83 Respiratory Rate Blood Pressure 139/97 H BP Systolic 139 BP Diastolic 97 Pulse Ox 09/03/24 03:31 09/03/24 03:31 Temperature 97.4 F L Temperature Source Pulse Rate Respiratory Rate 16 Blood Pressure BP Systolic BP Diastolic Pulse Ox Weight Weight: 245 lb 2.464 oz Body Mass Index (BMI) 44.8 Physical Exam Const alert, oriented x3 and no apparent distress General Appearance: cooperative Orientation / Consciousness: awake Exam Limitations: no limitations HEENT normocephalic Head and Scalp: normal to inspection Eyes General Eye: normal appearance of both eyes Neck full ROM and no lymphadenopathy Lymph Lymphatic: no lymphadenopathy noted Chest inspection of chest normal Resp normal respiratory effort, normal air movement and clear to auscultation bilaterally Effort and Inspection: able to speak in complete sentences and symmetric chest movement Cardio regular rate and regular rhythm GI normal to inspection, nondistended, normoactive bowel sounds Manual OB Exam: presentation cephalic Back/Spine normal ROM Extremity full ROM and no calf tenderness Skin no rashes or lesions noted General Skin Exam: no breakdown Neuro oriented x3 and CN's II-XII intact bilaterally Psych mental status grossly normal and thought process normal Labs Labs Labs: Blood Type O POSITIVE Antibody Screen NEGATIVE Hct 38.2 % (37-47) Hgb 13.0 g/dL (12.0-15.0) Syphilis Total Ab Non-reactive Assessment & Plan (1) Anxiety: (2) Depression: (3) Obesity: (4) Gestational HTN: (5) Gestational diabetes: (6) Asthma: (7) Encounter for induction of labor: (8) Benign intracranial hypertension: COMMENT: Patient cleared by neurology & anesthesia department for delivery at [facility] (9) 38 weeks gestation of : PLAN: Plan Admit to L&D for induction of labor Routine labs- get PIH labs and hold BP 130-140/90's- no severe ranges at this time GBS negative Cytotec 25 mcg PO every 4 hours with total of 6 doses Anesthesia department involved with plan of care and cleared patient to deliver at [facility] Dr. Gomez notified of admission and is collaborating physician
[2024-09-03 09:22] LABS: Bedside Glucose 74 mg/dL (74-106)
[2024-09-03 11:56] LABS: Bedside Glucose 87 mg/dL (74-106)
[2024-09-03] MEDS: 0.9% Normal Saline Single 100 ML IV.SOLN. INTRA-UTER (12:02)
--- NOTE | 2024-09-03 12:02 | PCM.PN.CNM ---
Subjective Subjective Patient starting to feel contractions. Declines pain medications. Objective Data Objective Data Vital Signs: Vital Signs Temp Pulse Resp BP Pulse Ox 98.0 F 95 16 131/87 H 97 09/03/24 07:17 09/03/24 11:35 09/03/24 11:35 09/03/24 11:35 09/03/24 11:35 Weight: 245 lb 2.464 oz Body Mass Index (BMI) 44.8 Intake & Output: Intake and Output for Last 24 Hours 09/01/24 09/02/24 09/03/24 23:59 23:59 23:59 Intake Total 1000.00 / 1000.00 Balance 1000.00 / 1000.00 Lab / Micro Data 09/02/24 22:15 Labs: Laboratory Results - last 24 hr 09/02/24 22:15: WBC 13.1 H, RBC 4.36, Hgb 13.0, Hct 38.2, MCV 87.6, MCH 29.8, MCHC 34.0, RDW Std Deviation 47.7 H, RDW Coeff of Bc 14.9 H, Plt Count 200, MPV 14.2 H, Immature Gran % (Auto) 0.700, Neut % (Auto) 75.2 H, Lymph % (Auto) 17.2 L, [place] % (Auto) 6.0, Eos % (Auto) 0.5, Baso % (Auto) 0.4, Absolute Neuts (auto) 9.8 H, Absolute Lymphs (auto) 2.25, Nucleated RBC % 0, Syphilis Total Ab Non-reactive, Blood Type O POSITIVE, Antibody Screen NEGATIVE 09/02/24 22:55: POC Glucose 87 09/03/24 00:07: POC Glucose 71 L 09/03/24 03:22: POC Glucose 76 09/03/24 07:55: POC Glucose 74 09/03/24 11:34: POC Glucose 87 Assessment & Plan (1) 38 weeks gestation of : (2) Encounter for induction of labor: (3) Asthma: (4) Gestational diabetes: (5) Gestational HTN: (6) Anxiety: (7) Depression: (8) Obesity: (9) Migraine headache with aura: (10) Benign intracranial hypertension: COMMENT: Patient cleared by neurology & anesthesia department for delivery at [facility] PLAN: Plan CE /-3 Jung bulb inserted without difficulty and filled with 30 cc N/S Start Pitocin 2 mu/min and increase per orders Pain medications/epidural when indicated Blood pressures- no severe ranges
[2024-09-03] MEDS: Oxytocin 15 Units/NS 250ml 15 UNITS/250 ML IV.SOLN 2 UNITS IV (12:10)
[2024-09-03] MEDS: Lactated Ringers 1,000 ML 999 ML IV (14:37)
[2024-09-03] MEDS: fentaNYL-bupivacaine (epidural) 100 ML BAG EPIDURAL ×2 (15:23→20:05)
[2024-09-03] MEDS: Lactated Ringers 1,000 ML 200 ML IV ×2 (15:23→21:44)
[2024-09-03 16:05] LABS: Bedside Glucose 100 mg/dL (74-106)
--- NOTE | 2024-09-03 16:38 | PCM.PN.CNM ---
Subjective Subjective Patient comfortable with epidural. Objective Data Objective Data Vital Signs: Vital Signs Temp Pulse Resp BP Pulse Ox 97.1 F L 122 H 16 140/84 H 88 09/03/24 15:22 09/03/24 16:09 09/03/24 15:35 09/03/24 16:09 09/03/24 15:34 Weight: 245 lb 2.464 oz Body Mass Index (BMI) 44.8 Intake & Output: Intake and Output for Last 24 Hours 09/01/24 09/02/24 09/03/24 23:59 23:59 23:59 Intake Total 1002.00 / 1002.00 Balance 1002.00 / 1002.00 Lab / Micro Data 09/02/24 22:15 Labs: Laboratory Results - last 24 hr 09/02/24 22:15: WBC 13.1 H, RBC 4.36, Hgb 13.0, Hct 38.2, MCV 87.6, MCH 29.8, MCHC 34.0, RDW Std Deviation 47.7 H, RDW Coeff of Bc 14.9 H, Plt Count 200, MPV 14.2 H, Immature Gran % (Auto) 0.700, Neut % (Auto) 75.2 H, Lymph % (Auto) 17.2 L, [place] % (Auto) 6.0, Eos % (Auto) 0.5, Baso % (Auto) 0.4, Absolute Neuts (auto) 9.8 H, Absolute Lymphs (auto) 2.25, Nucleated RBC % 0, Syphilis Total Ab Non-reactive, Blood Type O POSITIVE, Antibody Screen NEGATIVE 09/02/24 22:55: POC Glucose 87 09/03/24 00:07: POC Glucose 71 L 09/03/24 03:22: POC Glucose 76 09/03/24 07:55: POC Glucose 74 09/03/24 11:34: POC Glucose 87 09/03/24 15:45: POC Glucose 100 Assessment & Plan (1) 38 weeks gestation of : (2) Encounter for induction of labor: (3) Gestational diabetes: (4) Asthma: (5) Gestational HTN: (6) Anxiety: (7) Depression: (8) Obesity: (9) Migraine headache with aura: (10) Benign intracranial hypertension: COMMENT: Patient cleared by neurology & anesthesia department for delivery at [facility] PLAN: Plan CE /-2 AROM for meconium fluid IUPC and FSE placed without difficulty Pitocin at 4 mu/min- continue to increase per orders
[2024-09-03] MEDS: LACTATED RINGERS 500 ML 999 ML IV ×2 (17:00→21:44)
[2024-09-03] MEDS: Ondansetron 4 MG/2 ML Vial IV (17:04)
[2024-09-03 18:56] LABS: Bedside Glucose 91 mg/dL (74-106)
--- NOTE | 2024-09-03 21:02 | PN.OBGYN_ITS ---
Subjective Subjective Patient seen at bedside. Comfortable with epidural. Denies any pain. Feeling exhausted. Objective Data Objective Data Vital Signs: Vital Signs Temp Pulse Resp BP Pulse Ox 98.3 F 141 H 15 121/65 H 99 09/03/24 20:47 09/03/24 20:48 09/03/24 20:47 09/03/24 20:48 09/03/24 19:24 Weight: 245 lb 2.464 oz Body Mass Index (BMI) 44.8 Intake & Output: Intake and Output for Last 24 Hours 09/01/24 09/02/24 09/03/24 23:59 23:59 23:59 Intake Total 2534.77 / 2534.77 Balance 2534.77 / 2534.77 Lab / Micro Data 09/02/24 22:15 Labs: Laboratory Results - last 24 hr 09/02/24 22:15: WBC 13.1 H, RBC 4.36, Hgb 13.0, Hct 38.2, MCV 87.6, MCH 29.8, MCHC 34.0, RDW Std Deviation 47.7 H, RDW Coeff of Bc 14.9 H, Plt Count 200, MPV 14.2 H, Immature Gran % (Auto) 0.700, Neut % (Auto) 75.2 H, Lymph % (Auto) 17.2 L, [place] % (Auto) 6.0, Eos % (Auto) 0.5, Baso % (Auto) 0.4, Absolute Neuts (auto) 9.8 H, Absolute Lymphs (auto) 2.25, Nucleated RBC % 0, Syphilis Total Ab Non- reactive, Blood Type O POSITIVE, Antibody Screen NEGATIVE 09/02/24 22:55: POC Glucose 87 09/03/24 00:07: POC Glucose 71 L 09/03/24 03:22: POC Glucose 76 09/03/24 07:55: POC Glucose 74 09/03/24 11:34: POC Glucose 87 09/03/24 15:45: POC Glucose 100 09/03/24 18:36: POC Glucose 91 Assessment & Plan (1) 38 weeks gestation of : (2) Encounter for induction of labor: (3) Asthma: (4) Gestational diabetes: (5) Gestational HTN: (6) Anxiety: (7) Depression: (8) Obesity: (9) Migraine headache with aura: (10) Benign intracranial hypertension: COMMENT: Patient cleared by neurology & anesthesia department for delivery at [facility] PLAN: Plan CE /-2 minimal cervical change since 1450 Pitocin at 8 mu/min Initially patient stating that she is tired and has given labor 12 hours without much change. Initially requesting to have a section. Called and updated Dr. Gomez. Dr. Gomez recommends continuation of labor due to AROM has been less than 12 hours. Discussed recommendations with patient who stated she agrees with plan of care (continuation of labor), but if not progressed by morning, she would like a section.
[2024-09-03 22:23] LABS: Bedside Glucose 78 mg/dL (74-106)
[2024-09-03] MEDS: Mag Hydrox/Al Hydrox/Simeth 30 ML UDC PO (22:56)
--- NOTE | 2024-09-03 23:28 | PN.OBGYN_ITS ---
Subjective Subjective Called by nursing to patient's bedside. Patient requesting to have a section. Stated she has a headache that is behind her eye that continues to increase in pain. Her concern is that she does not want to push and go blind from intracranial pressure. Questioned patient on current clearance from Neurology and Anesthesia. Patient continuing to ask for section. Recently checked by nursing and was found to be 9.5 cm -1 station. Discussed with patient that she is close to starting to push and again patient stating she garcia not want to risk any problems while pushing and would like a section. Dr. Gomez notified and will be in route to speak with patient. Objective Data Objective Data Vital Signs: Vital Signs Temp Pulse Resp BP Pulse Ox 98.6 F 153 H 16 126/81 H 99 09/03/24 22:53 09/03/24 22:53 09/03/24 22:53 09/03/24 22:53 09/03/24 22:53 Weight: 245 lb 2.464 oz Body Mass Index (BMI) 44.8 Intake & Output: Intake and Output for Last 24 Hours 09/01/24 09/02/24 09/03/24 23:59 23:59 23:59 Intake Total 3534.77 / 3534.77 Balance 3534.77 / 3534.77 Lab / Micro Data 09/02/24 22:15 Labs: Laboratory Results - last 24 hr 09/02/24 22:15: Syphilis Total Ab Non-reactive 09/03/24 00:07: POC Glucose 71 L 09/03/24 03:22: POC Glucose 76 09/03/24 07:55: POC Glucose 74 09/03/24 11:34: POC Glucose 87 09/03/24 15:45: POC Glucose 100 09/03/24 18:36: POC Glucose 91 09/03/24 21:58: POC Glucose 78 Assessment & Plan (1) 38 weeks gestation of : (2) Encounter for induction of labor: (3) Asthma: (4) Gestational diabetes: (5) Anxiety: (6) Gestational HTN: (7) Depression: (8) Obesity: (9) Migraine headache with aura: (10) Benign intracranial hypertension: COMMENT: Patient cleared by neurology & anesthesia department for delivery at [facility] PLAN: Plan Dr. Gomez in route to hospital
[2024-09-03] MEDS: Cefazolin 3 GM in Syringe 1 EACH IV (23:56)
[2024-09-03] MEDS: Azithromycin 500 MG in 0.9% Normal Saline (250mL Bag) 250 ML 255 MG IV (23:57)
[2024-09-04] VITALS (18 sets, daily range): BP systolic 112–164; BP diastolic 58–104; PULSE 104–151; RESP 15–20; TEMP 36.1–37; O2SAT 96–99
--- NOTE | 2024-09-04 00:52 | PRE.ANES_ITS ---
ASA Classification* ASA Classification ASA Classification: 2 and E Assessment & Plan Anesthesia* Anesthesia Assessment Anesthesia Assessment: Discussed sedation and/or anesthesia options, risks, benefits, and alternatives with patient/parents/legal guardian/POA. Questions invited. The patient/parents/legal guardian/POA seems to understand and agrees to proceed with anesthesia plan. Reviewed the physical assessment, medical history, allergy history and patient home medications list prior to surgery/procedure/anesthetic and documented any changes. Performed airway and anesthesia risk assessments. Anesthesia Type Anesthesia Type: Epidural History Source History Obtained from:: Patient and Chart Anesthesia Focused Assessment* Temperature: 98.6 F Pulse Rate: 151 Blood Pressure: 119/58 Respiratory Rate: 16 Pulse Ox: 99 Oxygen Delivery Method: Room Air Airway Assessment Mouth opens: >3 cm Mallampati Score: II Teeth Condition: Intact Focused Labs Anesthesia Preop lab: CBC WBC 13.1 K/mm3 (4.4-11.0) H 09/02/24 22:15 5 RBC 4.36 M/mm3 (4.2-5.4) 09/02/24 22:15 09/02/24 Hgb 13.0 g/dL (12.0-15.0) 09/02/24 22:15 09/02/24 Hct 38.2 % (37-47) 09/02/24 22:15 09/02/24 Plt Count 200 K/mm3 (150-450) 09/02/24 22:15 09/02/24 CHEMISTRY Potassium 3.6 mmol/L (3.5-5.1) 11/27/23 08:38 11/27/23 Sodium 139 mmol/L (136-145) 11/27/23 08:38 11/27/23 BUN 16 mg/dL (7-18) 11/27/23 08:38 11/27/23 Creatinine 1.02 mg/dL (0.55-1.02) 11/27/23 08:38 11/27/23 Glucose 91 mg/dL (74-106) 11/27/23 08:38 11/27/23 POC Glucose 78 mg/dL (74-106) 09/03/24 21:58 09/03/24 TSH 0.80 uIU/mL (0.358-3.74) 06/24/22 17:09 COAG Pre-Assessment Diagnosis/Proposed Procedure Planned Operative Procedure(s): Labor epidural to c section Anesthesia History Anesthesia History - biomedical analytical scientist: Anesthesia History - biomedical analytical scientist Hx Hospitalization No 08/16/24 12:42 Any Problems With Anesthesia No 08/16/24 12:42 Cholinesterase deficiency No 08/16/24 12:42 You/Your Family Experience No 08/16/24 12:42 fever (hyperthermia) with Relationship Recent Exposure to Contagious Disease Does patient have nerve No 08/16/24 12:42 stimulator Patient instructed to have device shut off --Does patient have Pacemaker or ICD? When Was Last Pacemaker Check QUESTION #4 FULL TEXT: You/Your Family Experience fever (hyperthermia) with Anesthesia Any additional information?: No Last Oral Intake Last Oral intake: Last Oral Intake NPO since 02:00 09/03/24 23:12 Meds taken in AM with sips of water? Meds patient instructed to take am of surgery Any additional information?: No PONV PONV - biomedical analytical scientist: PONV - biomedical analytical scientist Female HX of Motion Sickness HX of N/V After Surgery Non-Smoker Duration of Surgery greater than 60 minutes Number of Risk Factors PONV Score Any additional information?: No Height & Weight Height & Weight: Anesthesia: Height & Weight Height 5 ft 2 in 09/02/24 21:45 Weight: 111.2 kg 09/02/24 21:45 Body Mass Index (BMI) 44.8 09/02/24 21:45 Respiratory Assessment Respiratory Assessment - biomedical analytical scientist: Respiratory Tract Infection Hx - biomedical analytical scientist Hx Respiratory Tract Infection No 08/16/24 12:42 Any additional information?: No STOP Sleep Apnea STOP Sleep Apnea - biomedical analytical scientist: STOP Sleep Apnea - biomedical analytical scientist Hx Hypertension No 08/16/24 12:42 Hx Sleep Apnea No 08/16/24 12:42 CPAP BIPAP Do you snore loudly (louder than talking or can be heard Do you often feel tired/ fatigued/ sleepy during daytime? Has anyone observed you stop breathing during sleep? STOP Results QUESTION #5 FULL TEXT : Do you snore loudly (louder than talking or can be heard through closed doors)? Any additional information?: No Tobacco Use History Tobacco Use History - biomedical analytical scientist: Tobacco Use History - biomedical analytical scientist Tobacco Use Smoking Status Never smoker 09/02/24 22:15 Hx Tobacco Use No 09/02/24 22:15 Years Smoking Packs Smoked per Day Smoking Cessation Date was within the last 15 years Hx Smoking Cessation Date Hx Smoking Cessation Counseling Any additional information?: No Hematologic Medial History Hematologic Hx - biomedical analytical scientist: Hematologic Medical Hx - structural analysis engineer Hx of Blood Transfusion Hx of Transfusion in last 3 Months Date of Last Transfusion (if within last 3 months) Ever experience any problems with transfusion(s)? Specify any problems Hx of Preganancy in last 3 Months Nurse Filling Out Transfusion & Questions: Date: Time: Patient unable to answer at this time (ie. confused, unrespo Any additional information?: No /Reproduction History /Reproductive History - biomedical analytical scientist: /Reproductive Hx- biomedical analytical scientist Hx Now Yes 09/02/24 22:15 Gestational Age (in weeks): 38 09/02/24 22:15 EDC: 09/14/24 09/02/24 22:15 Hx 1 09/02/24 22:15 Hx Para 0 09/02/24 22:15 Hx Section SAB 0 09/02/24 22:15 Yes 09/02/24 22:15 Any additional information?: No Active Medications Active Medications: Current Medications Generic Name Dose Route Start Last Admin Trade Name Freq PRN Reason Stop Dose Admin Acetaminophen 500 - 1,000 mg 09/02/24 21:49 09/03/24 22:56 Acetaminophen 500 Mg Tablet PO 1,000 mg Q6H PRN PRN Administration Pain Score 1-3 Al Hydroxide/Mg Hydroxide 15 - 30 ml 09/02/24 21:49 09/03/24 22:56 Mag Hydrox/Al Hydrox/Simeth 30 Ml Udc PO 30 ml Q4H PRN PRN Administration INDIGESTION Bupropion HCl 300 mg 09/02/24 23:45 09/03/24 00:31 Bupropion (Xl) 300 Mg Tablet.Xl PO 300 mg QHS TD Administration Bupropion HCl 300 mg 09/04/24 10:00 Bupropion (Xl) 300 Mg Tablet.Xl PO DAILY TD Buspirone HCl 10 mg 09/02/24 23:45 09/03/24 16:14 Buspirone 5 Mg Tablet PO 10 mg TID TD Administration Carboprost Tromethamine 250 mcg 09/02/24 21:49 Carboprost Tromethamine 250 Mcg/Ml Ampul IM X1 PRN Provider Request Citric Acid/Sodium Citrate 30 ml 09/02/24 21:49 Sodium Citrate/Citric Acid 30 Ml Udc PO X1 PRN Section Ephedrine Sulfate 10 mg 09/03/24 14:52 Ephedrine Sulfate 50 Mg/Ml Ampul IM Q30M PRN hypotension Ephedrine Sulfate 10 mg 09/03/24 14:52 Ephedrine Sulfate 50 Mg/Ml Ampul IV Q10M PRN hypotension Escitalopram Oxalate 10 mg 09/03/24 00:15 09/03/24 00:30 Escitalopram Oxalate 10 Mg Tablet PO 10 mg QHS TD Administration Escitalopram Oxalate 10 mg 09/04/24 10:00 Escitalopram Oxalate 10 Mg Tablet PO DAILY TD Fentanyl Citrate 25 - 50 mcg 09/02/24 21:49 Fentanyl 100 Mcg/2 Ml Ampul IV Q2H PRN PRN Pain Score 4-10 Fentanyl/Bupivacaine/Sodium Chlor 0 ml 09/03/24 14:55 09/03/24 20:05 Fentanyl-Bupivacaine (Epidural) 100 Ml Bag EPIDURAL 100 ml UD TD Administration Protocol Glucagon 1 mg 09/02/24 21:49 Glucagon 1 Mg/Ml Syringe IM X1 PRN HYPOGLYCEMIA Lactated Ringer's 500 mls @ 999 mls/hr 09/02/24 21:49 09/03/24 21:44 Lactated Ringers IV 999 mls/hr .Q31M PRN Administration Corrective Measures Protocol Oxytocin/Sodium Chloride 15 units in 250 mls @ 334 mls/hr 09/02/24 21:49 IV .Q45M PRN Post Vaginal Delivery Lactated Ringer's 1,000 mls @ 50 mls/hr 09/02/24 22:00 09/03/24 21:44 IV 09/07/24 01:59 200 mls/hr .Q20H TD Administration Protocol Lactated Ringer's 1,000 mls @ 999 mls/hr 09/02/24 21:49 09/03/24 15:38 IV Infused .Q1H1M PRN Infusion Epidural Placement Protocol Dextrose 250 mls @ 0 mls/hr 09/02/24 21:49 Dextrose 10%-Water IV .Q0M PRN Hypoglycemia Protocol As Directed Oxytocin/Sodium Chloride 15 units in 250 mls @ 2 mls/hr 09/02/24 21:50 09/03/24 19:46 IV 8 mls/hr .Q125H TD Infusion Lidocaine HCl 0 ml 09/02/24 21:49 Lidocaine 1% (20 Ml Mdv) 20 Ml Vial INFILT X1 PRN Provider Request Methylergonovine Maleate 0.2 mg 09/02/24 21:49 Methylergonovine 0.2 Mg/Ml Ampul IM X1 PRN Provider Request Misoprostol 1,000 mcg 09/02/24 21:49 Misoprostol 200 Mcg Tablet RC X1 PRN Provider Request Nalbuphine HCl 5 mg 09/03/24 14:52 Nalbuphine 10 Mg/Ml Ampul IV Q3H PRN PRN ITCHING Non-Formulary Medication 10 mg 09/04/24 01:00 Buspirone PO 3XD TD Ondansetron HCl 4 mg 09/02/24 21:49 09/03/24 17:04 Ondansetron 4 Mg/2 Ml Vial IV 4 mg Q4H PRN PRN Administration NAUSEA Oxytocin 10 units 09/02/24 21:49 Oxytocin 10 Units/Ml Vial IM X1 PRN Post Vaginal Delivery Prochlorperazine Edisylate 10 mg 09/02/24 21:49 Prochlorperazine 10 Mg/2 Ml Vial IV Q6H PRN PRN NAUSEA Sodium Chloride 10 - 40 ml 09/02/24 21:49 0.9% Saline Lock 10 Ml Syringe IV X1 PRN SALINE FLUSH PFSH Medical History (Updated 09/03/24 @ 06:26 by Brianna Aceves CNM) Gestational HTN Anemia Restless legs Injury of back Gastric reflux Gestational diabetes Non-smoker History of lumbar puncture Polycystic disease, ovaries Asthma Home Medications ?Medication ?Instructions ?Recorded ?Last Taken ?Type bupropion HCl 150 mg 24 hr tablet, 300 mg PO DAILY anx iety/depression 05/06/23 09/01/24 22:00 History extended release ondansetron 4 mg disintegrating 4 mg PO Q6H PRN nausea and 05/06/23 09/01/24 08:00 Rx tablet vomiting #15 tabs escitalopram oxalate 20 mg tablet 10 mg PO DAILY anxie ty/depression 08/16/24 09/01/24 22:00 History buspirone 10 mg tablet 10 mg PO 3XD anxiety/depress ion 09/02/24 09/01/24 22:00 History epidural administration set #1 ea 09/03/24 Unknown Rx Allergy/AdvReac Type Severity Reaction Status Date / Time fluoxetine (From Prozac) Allergy Swelling Verified 09/02/24 22:17 Family History Brother Pseudotumor cerebri Grandfather CVA (cerebral vascular accident) Social History Smoking Status: Never smoker Electronic Cigarette Use: not used second hand exposure: Yes alcohol intake: current alcohol intake frequency: holidays/special occasions only substance use type: does not use Review of Systems (Anesthesia) ROS Narrative System reviewed and no additional complaints, except as documented.
--- NOTE | 2024-09-04 00:52 | OP.PCM_ITS ---
Maternal Data Information BRANT Calculator Estimated Delivery Date Method Current WG Current Estimate 09/14/24 Manual 38w 4d Operative Report (OB) Cecarean Details Procedure Type: low transverse Date of Procedure: 09/04/24 Procedure Start Time: 00:06 Procedure Stop Time: :06 Pre-Operative Diagnosis: Repeat Elective and Other Other Pre-Operative diagnosis: Maternal request for elective primary section Post-Operative Diagnosis: Same as Pre-operative diagnosis Classification: CHRISTIANA Type of Anesthesia: Epidural Antibiotic Given: Ancef 2 grams IV x1 and Zithromax 500 mg/5 mL X1 Drain: Jung to straight drain Estimated Blood Loss: 1000ml Fluids Replaced: 650ml Findings Description of surgery: Patient was being induced for gestational hypertension. Patient developed a headache and felt that it was a symptom of her pseudotumor cerebri. She was reassured by CNM and then by myself that she was cleared for epidural anesthesia as well as for vaginal or delivery by neurology. Patient again stated that she declined to further labor and requests an elective primary section. She was counseled on all R/B/A and strongly wished to proceed with a section CHRISTIANA. The patient was taken to the operating room where epidural anesthesia was dosed & found to be adequate. She was prepped and draped in the dorsal supine position with a leftward tilt. A Pfannenstiel skin incision was made approximat corona 2 cm above the symphysis pubis and carried through to the underlying fascia with the scalpel. The fascia was incised incised in the midline and extended laterally with the Alvarado scissors. The rectus muscles were in the midline and the peritoneum was entered carefully and bluntly. The peritoneal incision was stretched and the bladder blade was inserted. Vesicouterine peritoneum was tented up, incised & then bladder flap created gently. The uterine incision was made in a low transverse fashion with the scalpel and extended superiorly and inferiorly with blunt dissection. The 's head was brought to the incision in the flexed position and delivered without difficulty. The head was gently guided to allow delivery of the anterior and posterior shoulders. The body then delivered with fundal pressure in the standard fashion. The 3VC cord was clamped and cut. The infant was handed off to the waiting etl bi developer. The placenta was delivered with fundal massage and gentle traction in the standard fashion. The uterus was exteriorized and cleared of clots and debris. The uterine incision was closed with #1 Vicryl suture in a running locked fashion. Monocryl suture was used in an imbricating fashion. The incision was examined and was found to be hemostatic. The uterus was returned to the abdominal cavity. After irrigating Ronnie was placed over the uterine incision as some areas were denuded (but hemostatic). The rectus muscle was examined and any bleeding was Bovie cauterized. The fascia was closed with PDS suture in a running standard fashion. The subcutaneous tissue was examining and any bleeding was Bovie cauterized. The subcutaneous tissue was reapproximated with interrupted sutures. The skin was closed in a subcuticular fashion by the ARMAMENT INSTALLER while I was present on the unit. The remainder of the procedure was performed by me with assistance. Surgical findings: normal maternal uterus and adnexa Presentation: Vertex Amniotic Membrane Rupture Type: Artificial Amniotic Fluid Description: Moderate meconium Placental Delivery Description: Expressed Placenta Disposition: [facility] Specimen collected: No Cord Vessel Description: 3 Vessels Cord Entanglement: None Infant A gender: Male (1 minute): 8 (5 minute): 9 Delayed Cord Clamping: No Assemblies And Installations Inspector blue split trimmer: Yes Health Information Internship: Marino Linder Tasks completed by waiter/waitress first class: Opening & closing and Retracting Additional press assistant and feeder?: Yes Additional Leaf Tinner #2: Homa Llamas Tasks completed by press assistant and feeder #2: Closing and Retracting Complications Complications: No
--- NOTE | 2024-09-04 01:22 | PCM.POST.ANE ---
Anesthesia: Postop Eval I Current Vital Signs Temperature: 98.1 F Pulse Rate: 122 Blood Pressure: 154/96 Respiratory Rate: 20 Pulse Ox: 99 Oxygen Delivery Method: Room Air Assessment Airway patent: Yes Spontaneous unlabored respirations: Yes Mental status: Awake and Calm nausea: No Vomiting: No Anesthesia Complication: No Fluid Hydration Crystalloid volume administer (ml): 650 Total IV fluid infused: 650 Progress Note Post-operative progress note: pt tolerated csection well, duramorph given. to room on monitors. Anesthesia document: Postop Eval 1 completed: Yes
--- NOTE | 2024-09-04 01:25 | POSTOPAN2_ITS ---
Anesthesia Postop Eval I Sum Postop Eval Completion status Anesthesia document: Postop Eval 1 completed: Yes Anesthesia Postop Eval I Summary Anesthesia Postop Eval I Summary: Anesthesia Postop Eval I: Assessment Summary Airway patent Yes 09/04/24 01:24 TIMBER CRUISER.MEDM Spontaneous unlabored Yes 09/04/24 01:24 TIMBER CRUISER.MEDM respirations Mental status Awake,Calm 09/04/24 01:24 TIMBER CRUISER.MEDM nausea No 09/04/24 01:24 TIMBER CRUISER.MEDM Vomiting No 09/04/24 01:24 TIMBER CRUISER.MEDM Anesthesia Postop Eval I: Fluid Summary Crystalloid volume administer 650 09/04/24 01:24 TIMBER CRUISER.MEDM (ml) Colloids volume administered ( ml) Blood Product volume administered (ml) Total IV fluid infused 650 09/04/24 01:24 TIMBER CRUISER.MEDM Anesthesia Postop Eval I: Summary Notes Anesthesia Complication No 09/04/24 01:24 TIMBER CRUISER.MEDM Anesthesia Complication Comment: Post-operative progress note pt tolerated 09/04/24 01:24 TIMBER CRUISER.MEDM csection well, duramorph given. to room on monitors. Anesthesia: Postop Eval II Evaluation Mental status: Awake and Calm Pain Level: 4 nausea: No Vomiting: No Complications Anesthesia Complication: No
--- NOTE | 2024-09-04 01:25 | PCM.POSTANE2 ---
Anesthesia Postop Eval I Sum Postop Eval Completion status Anesthesia document: Postop Eval 1 completed: Yes Anesthesia Postop Eval I Summary Anesthesia Postop Eval I Summary: Anesthesia Postop Eval I: Assessment Summary Airway patent Yes 09/04/24 01:24 TEXTILE MACHINERY INSTRUCTOR.MEDM Spontaneous unlabored Yes 09/04/24 01:24 TEXTILE MACHINERY INSTRUCTOR.MEDM respirations Mental status Awake,Calm 09/04/24 01:24 TEXTILE MACHINERY INSTRUCTOR.MEDM nausea No 09/04/24 01:24 TEXTILE MACHINERY INSTRUCTOR.MEDM Vomiting No 09/04/24 01:24 TEXTILE MACHINERY INSTRUCTOR.MEDM Anesthesia Postop Eval I: Fluid Summary Crystalloid volume administer 650 09/04/24 01:24 TEXTILE MACHINERY INSTRUCTOR.MEDM (ml) Colloids volume administered ( ml) Blood Product volume administered (ml) Total IV fluid infused 650 09/04/24 01:24 TEXTILE MACHINERY INSTRUCTOR.MEDM Anesthesia Postop Eval I: Summary Notes Anesthesia Complication No 09/04/24 01:24 TEXTILE MACHINERY INSTRUCTOR.MEDM Anesthesia Complication Comment: Post-operative progress note pt tolerated 09/04/24 01:24 TEXTILE MACHINERY INSTRUCTOR.MEDM csection well, duramorph given. to room on monitors. Anesthesia: Postop Eval II Evaluation Mental status: Awake and Calm Pain Level: 4 nausea: No Vomiting: No Complications Anesthesia Complication: No
[2024-09-04] MEDS: Oxytocin 15 Units/NS 250ml 15 UNITS/250 ML IV.SOLN 83 UNITS IV (01:30)
[2024-09-04] MEDS: Ketorolac 30 MG/ML Syringe IV ×4 (01:41→20:02)
[2024-09-04] MEDS: 0.9% Saline Lock 10 ML Syringe IV ×4 (01:42→20:02)
[2024-09-04 02:56] LABS: Bedside Glucose 85 mg/dL (74-106)
[2024-09-04] MEDS: Acetaminophen 500 MG Tablet 1000 MG PO ×3 (05:30→18:08)
[2024-09-04 06:44] LABS: Hematocrit 34.4 % (37-47); Hemoglobin 11.5 g/dL (12.0-15.0); Mean Corp Hgb Conc 33.4 g/dL (32-36); Mean Corpuscular Hgb 29.5 pg (27.0-32.0); Mean Corpuscular Volume 88.2 fL (81-99); Mean Platelet Vol. 14.2 fl (6.2-12.0); Platelet Count 210 K/mm3 (150-450); RBC Distribution Width CV 15.3 % (11.6-14.6); RBC Distribution Width SD 48.2 fl (35.1-43.9); White Blood Count 28.2 K/mm3 (4.4-11.0)
--- NOTE | 2024-09-04 09:17 | PN.OBGYN_ITS ---
Subjective Subjective Patient seen at bedside. Sitting in chair. Denies headache, vision changes, SOB or CP. infant. Pain controlled at this time. Objective Data Objective Data Vital Signs: Vital Signs Temp Pulse Resp BP Pulse Ox O2 Del Method 97.6 F L 132 H 16 145/92 H 98 Room Air 09/04/24 07:21 09/04/24 07:21 09/04/24 07:21 09/04/24 07:21 09/04/24 07:21 09/04/24 07:21 Oxygen Delivery Method Room Air Weight: 245 lb 2.464 oz Body Mass Index (BMI) 44.8 Intake & Output: Intake and Output for Last 24 Hours 09/02/24 09/03/24 09/04/24 23:59 23:59 23:59 Intake Total 3534.77 / 3534.77 2034 Output Total 1201 / 1201 Balance 3534.77 / 3534.77 834 / 834 Lab / Micro Data Attestation: I reviewed the patient's lab results. 09/04/24 06:25 Labs: Laboratory Results - last 24 hr 09/03/24 07:55: POC Glucose 74 09/03/24 11:34: POC Glucose 87 09/03/24 15:45: POC Glucose 100 09/03/24 18:36: POC Glucose 91 09/03/24 21:58: POC Glucose 78 09/04/24 02:33: POC Glucose 85 09/04/24 06:25: WBC 28.2 H, RBC 3.90 L, Hgb 11.5 L, Hct 34.4 L, MCV 88.2, MCH 29.5, MCHC 33.4, RDW Std Deviation 48.2 H, RDW Coeff of Bc 15.3 H, Plt Count 210, MPV 14.2 H ROS Eyes Eyes: Denies blurry vision, spots in vision or tunnel vision ENT HEENT: Denies dizziness or headache(s) Cardiovascular Cardiovascular: Reports systems reviewed and no addt'l complaints, except as documented, dizziness and dyspnea Respiratory/Chest Respiratory/Chest: Reports systems reviewed and no addt'l complaints, except as documented Gastrointestinal Gastrointestinal: Reports systems reviewed and no addt'l complaints, except as documented Genitourinary Genitourinary: Reports systems reviewed and no addt'l complaints, except as documented Neurologic Neurologic: Denies abnormal speech, dizziness, headache(s), syncope or vertigo Psychiatric Psychiatric: Reports systems reviewed and no addt'l complaints, except as documented Physical Exam Const alert and no apparent distress General Appearance: cooperative Orientation / Consciousness: awake, oriented to person and oriented to place Exam Limitations: no limitations HEENT normocephalic Eyes General Eye: normal appearance of both eyes Neck full ROM Chest Chest: symmetrical chest wall rise Resp normal respiratory effort, normal air movement and clear to auscultation bilaterally Auscultation: clear to auscultation bilaterally Cardio regular rate and regular rhythm GI normal to inspection, nondistended, normoactive bowel sounds Uterus Palpation: uterus fundus firm Extremity full ROM and no calf tenderness Skin no rashes or lesions noted Neuro oriented x3 Psych mental status grossly normal and activity/motor behavior normal Assessment & Plan (1) Asthma: (2) Gestational diabetes: (3) Gestational HTN: (4) Anxiety: (5) Depression: (6) Obesity: (7) Migraine headache with aura: (8) Benign intracranial hypertension: COMMENT: Patient cleared by neurology & anesthesia department for delivery at [facility] (9) Status post primary low transverse section: (10) Care and examination of lactating mother: PLAN: Plan POD 1 Primary , Elective C/S Increase ambulation Pain control support Continue to monitor BP- no severe ranges
[2024-09-04] MEDS: busPIRone 5 MG Tablet 10 MG PO ×3 (10:09→22:08)
[2024-09-04] MEDS: Senna/Docusate Sodium 1 Tablet PO (10:09)
[2024-09-04] MEDS: buPROPion (XL) 300 MG TABLET.XL PO (10:10)
[2024-09-04] MEDS: Escitalopram Oxalate 10 MG Tablet PO (10:10)
[2024-09-04] MEDS: Enoxaparin 40 MG/0.4 ML Syringe SC (13:08)
[2024-09-05] MEDS: Acetaminophen 500 MG Tablet 1000 MG PO ×2 (00:26→05:49)
[2024-09-05] MEDS: Enoxaparin 40 MG/0.4 ML Syringe SC (00:27)
[2024-09-05 00:45] VITALS: BP 135/90; PULSE 106; RESP 16; TEMP 36.4; O2SAT 97
[2024-09-05] MEDS: Ibuprofen 600 MG Tablet PO ×2 (02:15→07:45)
[2024-09-05] MEDS: busPIRone 5 MG Tablet 10 MG PO (05:49)
--- NOTE | 2024-09-05 06:54 | PCM.DC.SUM ---
Providers Date of Admission: 09/02/24 Primary Care Physician: Vickie Primary Care Phys Reason For Visit: INDUCTION Diagnosis Discharge Diagnosis (1) Asthma: Status: Acute Code(s): J45.909 - Unspecified asthma, uncomplicated (2) Gestational diabetes: Status: Acute Code(s): O24.419 - Gestational diabetes mellitus in , unspecified control (3) Gestational HTN: Status: Acute Code(s): O13.9 - Gestational [-induced] hypertension without significant proteinuria, unspecified trimester (4) Anxiety: Status: Acute Code(s): F41.9 - Anxiety disorder, unspecified (5) Depression: Status: Acute Code(s): F32.9 - Major depressive disorder, single episode, unspecified (6) Obesity: Status: Acute Code(s): E66.9 - Obesity, unspecified (7) Migraine headache with aura: Status: Acute Code(s): G43.109 - Migraine with aura, not intractable, without status migrainosus (8) Benign intracranial hypertension: Status: Acute Code(s): G93.2 - Benign intracranial hypertension (9) Status post primary low transverse section: Status: Acute Code(s): Z98.891 - History of uterine scar from previous surgery (10) Care and examination of lactating mother: Status: Acute Code(s): Z39.1 - Encounter for care and examination of lactating mother Plan POD 1 Primary , Elective C/S Increase ambulation Pain control support Continue to monitor BP- no severe ranges Medications at Discharge Home Medications bupropion HCl 150 mg 24 hr tablet, extended release 300 mg PO DAILY anxiety/depression 05/06/23 ondansetron 4 mg disintegrating tablet 4 mg PO Q6H PRN nausea and vomiting #15 tabs 05/06/23 escitalopram oxalate 20 mg tablet 10 mg PO DAILY anxiety/depression 08/16/24 buspirone 10 mg tablet 10 mg PO 3XD anxiety/depression 09/02/24 epidural administration set #1 ea 09/03/24 acetaminophen 500 mg tablet 1,000 mg (2 x 500 mg) PO Q6H #0 tabs 09/05/24 ibuprofen 600 mg tablet 600 mg PO Q6H #0 tabs 09/05/24 sennosides 8.6 mg-docusate sodium 50 mg tablet (Stimulant Laxative Plus) 1 - 2 tab PO DAILY #0 tabs 09/05/24 Hospital Course Operations section Procedures None Summary of Care Provided Minutes Spent on Discharge: 15 Hospital Course: Patient had section. Hospital course was uneventful. Physical Exam Narrative Dressing is dry and intact Const alert and no apparent distress General Appearance: cooperative and comfortable Exam Limitations: no limitations HEENT normocephalic Eyes General Eye: normal appearance of both eyes Neck full ROM General: normal visual inspection Chest Chest: symmetrical chest wall rise Resp normal respiratory effort and normal air movement Effort and Inspection: symmetric chest movement Auscultation: clear to auscultation bilaterally Cardio regular rate and regular rhythm GI normal to inspection, nondistended, normoactive bowel sounds Back/Spine normal ROM Extremity full ROM and no calf tenderness General Extremity: normal exam except as noted Skin no rashes or lesions noted Wound Narrative: Dressing is dry and intact. Neuro CN's II-XII intact bilaterally Psych mental status grossly normal Weight / BMI Weight Weight: 245 lb 2.464 oz Body Mass Index (BMI) 44.8 ABG / Lab / Microbiology Data 09/04/24 06:25 D/C Instructions Discharge Diet: No restrictions Discharge Activity: May Drive (2 weeks) and May Shower May resume sexual activity in: 6-8 weeks Weight Bearing Status: Weight bearing as tolerated Lifting Restricted to (Lbs): 25 Call your doctor if your incision/area has: Continuous Slow Oozing, Sudden Increased Bleeding, Increased Pain/ Swelling, Increased Redness, Foul Smelling Discharge and Swelling at the incision site Call your doctor if you observe: Fever of 101 or Higher, Numbness or Tingling, Using more than 1 pad per hour, Shortness of breath, Dizziness, Swelling in the ankles, Chest pain, Calf discomfort and Uncontrolled pain Suture Line Care: Avoid Pulling/Pushing Remove Dressing in: 5 days (Remove yourself or call office and schedule appointment for dressing removal.) DC O2, CPAP, BIPAP Needs Home O2 Discharge instructions: No Please Follow Up With: Jackie Gomez MD When: 5 days for dressing removal or 2 weeks for post appointment. Meaningful Use Info Meaningful Use Meaningful Use Diagnoses (Choose all that apply): None applicable Ischemic Stroke Statin Dosing Therapy Reference: STATIN DOSE THERAPY REFERENCE: * Patients > 75 years receive moderate or high dose statin therapy. * Patients 75 years or YOUNGER should receive HIGH intensity statin dose unless contraindicated. You will be required to document reason for non-treatment if statin daily dose does not meet guidelines. HIGH DOSE STATIN THERAPY DAILY Atorvastatin > than or = to 40 mg Rosuvastatin > than or = to 20 mg Amlodipine + Atorvastatin > than or = to 2.5/40 mg Ezetimibe + Simvastatin 10/80 mg Simvastatin 80mg Discharge Plan Admission Admit Date/Time: 09/02/24 21:49 Primary Reason for Your Visit: Labor and Delivery Attending Provider: Brianna Aceves Primary Care Provider: Care Physician,No Primary Discharge Orders/Prescriptions Prescriptions: New (DME) epidural administration set Infusion Set See Rx Instructions .Route Qty: 1 0RF Rx Instructions: As directed sennosides-docusate sodium [Stimulant Laxative Plus] 8.6-50 mg Tablet 1 - 2 tab PO DAILY Qty: 0 0RF acetaminophen 500 mg Tablet 1,000 mg PO Q6H Qty: 0 0RF ibuprofen 600 mg Tablet 600 mg PO Q6H Qty: 0 0RF Continued bupropion HCl 150 mg tablet extended release 24 hr 300 mg PO DAILY Patient Comments: take 1 tablet by mouth every morning ondansetron 4 mg tablet,disintegrating 4 mg PO Q6H PRN (Reason: nausea and vomiting) Qty: 15 0RF escitalopram oxalate 20 mg tablet 10 mg PO DAILY Patient Comments: take 1 tablet by mouth once daily buspirone 10 mg tablet 10 mg PO 3XD Referrals / Follow Up: Brianna Aceves CNM [Med Staff - [facility] Practice Prof] - Care Physician,No Primary [Primary Care Provider] - Disposition Disposition (needs filled in before D/C Order can be placed): Home, Self Care
[2024-09-05 07:42] VITALS: BP 132/87; PULSE 86; RESP 15; TEMP 36.1
[2024-09-05] MEDS: buPROPion (XL) 300 MG TABLET.XL PO (09:39)
[2024-09-05] MEDS: Escitalopram Oxalate 10 MG Tablet PO (09:40)
[2024-09-05] MEDS: Senna/Docusate Sodium 1 Tablet PO (09:40)
--- NOTE | 2024-09-05 11:14 | CASEMGMT ---
Social Work Assessment Labor and Delivery Unit Patient Address: [id number] [place] [address] [place] [address] Phone number: [phone] Date of Referral: 09/03/24 Time of Referral:? 714 Referred By: Brianna Aceves Date of Intervention: ?09/05/24? Time of Intervention:? 1030 Reason for Referral:? anxiety, depression, PTSD Sw completed chart review and acknowledges social work consult due to maternal mental health history. Sw presented to bedside and introduced self to mother of baby (MOB- Mackenzie) and father of baby (FOB- Jn). Sw explained reason for sw involvement and completed psychosocial assessment. History obtained from: medical records, MOB and FOB. Household composition:Parents are currently residing in the home with paternal grandparents. MOB denies any problems or concerns with housing, stating that where they live is safe and secure. Patient's parent/guardian status:?MARLEN states that he and MOB knew each other in high school and started dating in 2014, they have been for four years. No concerns reported of domestic violence or intimate partner violence. ? Medical History: ?MISBAH is 28 year old female who is 1, para 0- now 1 following labor and delivery of . MOB received routine care during with [facility]. MISBAH presented to hospital for a scheduled induction of labor and ended up requiring . Baby boy, named Dakota Araya, was born on 09[birth year]24 at 38 weeks gestation weighing 7lb 2oz with apgars of 8 and 9 at one and five minutes of life, respectfully. MISBAH is breast feeding and reports baby will be followed by Dr. Okeefe for pediatrics. Educational Status:? Both parents graduated from high school and attended some college, but did not get degrees. No problems with reading, learning or comprehension. Financial Status: MARLEN is gainfully employed outside of the home working for a [employer] company, he was given one week off of work for paternity leave. MOB is a stay at home mom. Supplies: All necessary baby supplies obtained, including: car seat, safe sleep space, clothes, diapers and wipes. Childcare/Caregiver(s):? MOB will be the primary caregiver to baby along with paternal grandparents if MOB needs help. Transportation:?? Both parents have their drivers license and reliable means of transportation, no barriers at this time. Programs/Agencies Involved: Parents are not connected to any community agencies that assist them financially as they are over income. ??? Children Services/Legal Issues:??? No history of children services involvement, no issues or concerns warranting referral to be made at this time. Behavioral Health Issues: ??Mental Health History:??FOJanee denies mental health history. MOB states that she has been diagnosed with anxiety, depression and PTSD. MOB states that she is prescribed Wellbutrin, BuSpar and Lexapro. MOB states that she is connected to psychiatry through [facility] and counseling at [facility]. ? Substance Use History:?Parents deny substance use prior to and during . ? Family History: Parents deny family history of substance use or significant mental health diagnoses. ? Drug Screens: No drug screens observed in chart review. Family/Social Stressors:? MISBAH reports that she started to get overwhelmed when the baby was crying and she could not get him to settle down. MOB able to recognize that this caused her some anxiety. Support Systems: MISBAH identifies that her biggest supports are FOB and her best friend. Depression/Shaken Baby/Safe Sleeping: Doroteo educated parents on signs and symptoms of baby blues and mood and anxiety disorders to be mindful of during this period. MOB states that these are things that she has been discussing with her mental health service providers. MOB states that she has also discussed healthy and safe coping mechanisms for her to incorporate into her day if she starts to feel like she is struggling with her mental health. FOB states that he would be able to recognize if MOB were struggling with her mental health. Doroteo encouraged parents to have a conversation where MISBAH tells MARLEN what he can do to help her if she does struggle with her mental health. Parents agreed to this. Doroteo educated parents on shaken baby prevention and ABCs of safe sleep, parents expressed understanding. MOB states that they have some sleep sacks that they will use for sleep when they go home from hospital. ASSESSMENT:? MOB and baby admitted following labor and delivery. MOB with mental health history positive for anxiety, depression and PTSD. MOB states that her mental health is something that she has always struggled with starting in elementary school. FOB states that he knew her in high school and was able to notice a change in her mental health after graduation. FOB states that her mental health has been more managed and she has better coping skills now than when she was younger. MISBAH states that the counseling and psychiatry help, as she feels like she has professionals that she can talk to who understand and have good advice. MOB and FOB both observed to provide safe and loving hands on care to baby. Baby was inconsolable at times during sw assessment following his circumcision. Both parents remained calm and attempted to help soothe baby. MOB at times seemed slightly overwhelmed, but was at ease when baby would start to nurse well. Parents were receptive to recommendations on how to soothe and comfort baby during times when he may be overstimulated or upset. MBO states that if she starts to feel overwhelmed or anxious at home when FOB is at work she would call her mom or her best friend who are able to talk while they are at work. MISBAH has follow up appointments already scheduled with her mental health service providers. MOB and FOB made eye contact throughout completion of assessment, both parents attentive to baby and talked openly with sw. PLAN:?? No other services requested or indicated. MOB and baby to be discharged when medically ready. Parents were provided literature regarding: signs and symptoms of baby blues and mood and anxiety disorders, Help Me Grow, shaken baby prevention, ABCs of safe sleep and a list of county resources that are available for them should any needs present themselves. Na Coker, CLASSROOM INSTRUCTIONAL AIDE, POULTRY TRIMMER
== END 2024-09-05 12:55 | disposition home or self-care (01) | DRG 787 ==
PROVIDERS: Obstetrics & Gynecology; Admitting Provider Advanced Practice Midwife; Referring Provider Advanced Practice Midwife; Visit Provider Advanced Practice Midwife
DX: O75.81 Maternal exhaustion complicating labor and delivery (principal); O99.354 Diseases of the nervous system complicating childbirth; F32.9 Major depressive disorder, single episode, unspecified; J45.909 Unspecified asthma, uncomplicated; O99.214 Obesity complicating childbirth; O24.429 Gestational diabetes mellitus in childbirth, unspecified control; G43.109 Migraine with aura, not intractable, without status migrainosus; G93.2 Benign intracranial hypertension; F41.9 Anxiety disorder, unspecified; O13.4 Gestational [pregnancy-induced] hypertension without significant proteinuria, complicating childbirth; O77.0 Labor and delivery complicated by meconium in amniotic fluid; Z37.0 Single live birth; O99.344 Other mental disorders complicating childbirth; O99.52 Diseases of the respiratory system complicating childbirth; Z3A.38 38 weeks gestation of pregnancy
CPT/HCPCS: 59025; 59050; 82962; 85025; 85027; 86780; 86850; 86900; 86901; A4216; J2405

== ENCOUNTER 2024-09-08 01:35 | Outpatient (CLI) | payer BC, SELFPAY ==
[2024-09-08 01:51] VITALS: BMI 43.3
[2024-09-08 01:57] VITALS: BP 140/93; PULSE 96
[2024-09-08 01:58] VITALS: PULSE 98; O2SAT 98
[2024-09-08 02:14] VITALS: BP 142/97; PULSE 86
--- NOTE | 2024-09-08 02:32 | NURSING ---
Pt onto unit from ER with complaints of swelling and increased BP at 4 days PP. Pt reports that she has been monitoring for s/sx of PP pre-e since delivery, and noticed some swelling in her legs this morning. Pt was seen in [facility] earlier today d/t swelling and was advised to continue monitoring symptoms at home. Pt's states that her swelling improved this afternoon, and then this evening she had a BP reading of 160/?, followed by 153/?. Pt reports that after the BP readings she took a shower, and when she got out of the shower she noticed swelling in her left leg again, so she came to ER at that time. On unit pt's assessment was WNL and there was minimal swelling noted to her ankles. Pt's VS at 0153 were 98.4, HR 99, RR 18, spo2 98%, and BP 140/93. Repeat BP at 0211 was 142/97. Call to Dr. Barnes at 0218 to update on pt's arrival to unit and above concerns and findings. Per Dr. Barnes ok to discharge pt at this time and instruct pt to keep follow up appt scheduled for 09/10/24. Pt given discharge instructions and verbalized understanding. NASH Pedro
--- NOTE | 2024-09-08 07:51 | OB.TRI.NOTE ---
HPI - General HPI Narrative MAGGI AGUILAR, is a 28 F who presents for evaluation of BP and swelling - pt was just seen in office on 09/07/24 for same complaints. BPs 140s/80-90s asymptomatic- no headaches, no visual changes, no RUQ pain. Maternal Data Information BRANT Calculator Estimated Delivery Date Method Current WG Current Estimate 09/14/24 Manual 39w 1d PFSH PFSH Medical History (Updated 09/04/24 @ 09:19 by Brianna Aceves CNM) Gestational HTN Anemia Restless legs Injury of back Gastric reflux Gestational diabetes Non-smoker History of lumbar puncture Polycystic disease, ovaries Asthma Home Medications ?Medication ?Instructions ?Recorded ?Last Taken ?Type bupropion HCl 150 mg 24 hr tablet, 300 mg PO DAILY anxiety/depression 05/06/23 09/01/24 22:00 History extended release escitalopram oxalate 20 mg tablet 10 mg PO DAILY anxiety/depression 08/16/24 09/01/24 22:00 History buspirone 10 mg tablet 10 mg PO 3XD anxiety/depression 09/02/24 09/01/24 22:00 History epidural administration set #1 ea 09/03/24 Unknown Rx acetaminophen 500 mg tablet 1,000 mg (2 x 500 mg) PO Q6H #0 09/05/24 Unknown Rx tabs ibuprofen 600 mg tablet 600 mg PO Q6H #0 tabs 09/05/24 Unknown Rx sennosides 8.6 mg-docusate sodium 1 - 2 tab PO DAILY #0 tabs 09/05/24 Unknown Rx 50 mg tablet (Stimulant Laxative Plus) Allergy/AdvReac Type Severity Reaction Status Date / [facility] Allergy Swelling Verified 09/08/24 01:51 Family History Brother Pseudotumor cerebri Grandfather CVA (cerebral vascular accident) Social History Smoking Status: Never smoker Electronic Cigarette Use: not used second hand exposure: Yes alcohol intake: current alcohol intake frequency: holidays/special occasions only substance use type: does not use History Elective abortions Hx Para 0 Spontaneous abortions Hx # Term Pregnancies Ectopic pregnancies Hx # Pregnancies Multiple births # of living children Assessment & Plan (1) Gestational HTN: PLAN: Plan 28yo s/p Cs on 09/04/24 with GHTN, BP in mild range 1) dc home in stable condition has follow up on thursday09/09/24 scheduled in office 2) was just evaluated in office and BPs stable 140s/80-90s, swelling in left leg- getting LE Doppler at f
== END 2024-09-08 02:32 | disposition home or self-care (01) ==
LOC: WPOUT 01:39 → WP 01:40
PROVIDERS: Visit Provider Obstetrics & Gynecology
DX: O16.9 Unspecified maternal hypertension, unspecified trimester (principal); Z3A.00 Weeks of gestation of pregnancy not specified
CPT/HCPCS: 99221; G0378

== ENCOUNTER 2024-09-09 21:50 | Outpatient (CLI) | payer BC, SELFPAY ==
--- NOTE | 2024-09-09 21:45 | ED.RN ---
Vitals taken and alert received to notify [facility] d/t elevated bp and MONTEZ. Pt transported to [facility].
[2024-09-09 22:03] VITALS: BMI 41.7
[2024-09-09 22:08] VITALS: BP 141/91; PULSE 96; RESP 14; TEMP 36.6
[2024-09-09] MEDS: DiphenhydrAMINE 25 MG Capsule PO (22:20)
[2024-09-09] MEDS: Metoclopramide 10 MG Tablet PO (22:20)
[2024-09-09 22:23] VITALS: BP 151/88; PULSE 90
[2024-09-09 22:24] LABS: Hemoglobin 10.6 g/dL (12.0-15.0); Mean Corp Hgb Conc 33.1 g/dL (32-36); Mean Corpuscular Hgb 29.4 pg (27.0-32.0); Mean Corpuscular Volume 88.6 fL (81-99); Mean Platelet Vol. 11.2 fl (6.2-12.0); Platelet Count 349 K/mm3 (150-450); RBC Distribution Width CV 15.7 % (11.6-14.6); RBC Distribution Width SD 49.7 fl (35.1-43.9); Red Blood Count 3.61 M/mm3 (4.2-5.4); White Blood Count 11.2 K/mm3 (4.4-11.0)
[2024-09-09 22:38] VITALS: BP 146/86; PULSE 90
[2024-09-09 22:44] LABS: AST(SGOT) 33 U/L (15-37); Alanine Aminotransfer ALT/SGPT 38 U/L (13-56); Creatinine, Serum 0.69 mg/dL (0.55-1.02); EST Glomerular Filtration Rate 108 mL/min (>60); Est Glom Filt Rate - Afr Amer 131 mL/min (>60); Uric Acid 5.7 mg/dL (2.6-6.0)
[2024-09-09 22:53] VITALS: BP 148/88; PULSE 95
--- NOTE | 2024-09-09 23:13 | OB.TRI.NOTE ---
HPI - General General Date of Admission: 09/09/24 Date of Service: 09/09/24 Chief Complaint: headache HPI Narrative MAGGI AGUILAR, is a 28 F who presents with a MONTEZ starting at 5 pm. Has a hx of HTN. Delivered by [facility] 6 days ago. Taking Motrin and Tylenol at home. PIH labs are normal. BPS 140 60-80s. Reglan and Benadryl improved MONTEZ. Maternal Data Information BRANT Calculator Estimated Delivery Date Method Current WG Current Estimate 09/14/24 [facility] History (Updated 09/09/24 @ 23:[address] Tomasa Rider MD) Gestational HTN Anemia Restless legs Injury of back Gastric reflux Gestational diabetes Non-smoker History of lumbar puncture Polycystic disease, ovaries Asthma Home Medications ?Medication ?Instructions ?Recorded ?Last Taken ?Type bupropion HCl 150 mg 24 hr tablet, 300 mg PO DAILY anxiety/depression 05/06/23 09/09/24 History extended release escitalopram oxalate 20 mg tablet 10 mg PO DAILY anxiety/depression 08/16/24 09/09/24 History buspirone 10 mg tablet 10 mg PO 3XD anxiety/depression 09/02/24 09/09/24 History epidural administration set #1 ea 09/03/24 Unknown Rx acetaminophen 500 mg tablet 1,000 mg (2 x 500 mg) PO Q6H #0 09/05/24 09/09/24 20:00 Rx tabs ibuprofen 600 mg tablet 600 mg PO Q6H #0 tabs 09/05/24 09/09/24 17:00 Rx sennosides 8.6 mg-docusate sodium 1 - 2 tab PO DAILY #0 tabs 09/05/24 Unknown Rx 50 mg tablet (Stimulant Laxative Plus) metoclopramide HCl 10 mg tablet 10 mg PO Q6H PRN nausea and 09/09/24 Unknown Rx (Reglan) vomiting #10 tabs nifedipine 30 mg tablet,extended 30 mg PO DAILY 09/09/24 09/09/24 10:00 History release 24 hr (Procardia XL) Allergy/AdvReac Type Severity Reaction Status Date / Time fluoxetine (From Prozac) Allergy Swelling Verified 09/09/24 22:08 Family History Brother Pseudotumor cerebri Grandfather CVA (cerebral vascular accident) Social History Smoking Status: Never smoker Electronic Cigarette Use: not used second hand exposure: Yes alcohol intake: current alcohol intake frequency: holidays/special occasions only substance use type: does not use History Elective abortions Hx Para 0 Spontaneous abortions Hx # Term Pregnancies Ectopic pregnancies Hx # Pregnancies Multiple births # of living children ROS Constitutional Constitutional: Reports headache(s); Denies fever(s) or lethargy ENT HEENT: Reports neck pain Cardiovascular Cardiovascular: Denies chest pain or dyspnea Respiratory/Chest Respiratory/Chest: Denies dyspnea Gastrointestinal Gastrointestinal: Denies nausea or vomiting Neurologic Neurologic: Denies loss of vision or numbness Physical Exam Const alert, oriented x3 and no apparent distress General Appearance: cooperative and comfortable HEENT normocephalic and head/scalp atraumatic Eyes PERRL and EOMs intact bilaterally Neck full ROM Resp normal respiratory effort Extremity full ROM Psych mental status grossly normal and thought process normal Assessment & Plan (1) headache: (2) Gestational HTN: COMMENT: PLAN: Plan Was in office today. Has follow up next week
== END 2024-09-09 23:15 | disposition home or self-care (01) ==
LOC: WPOUT 21:53 → WP 21:54
PROVIDERS: Referring Provider Obstetrics & Gynecology; Visit Provider Obstetrics & Gynecology
DX: O99.893 Other specified diseases and conditions complicating puerperium (principal); R51.9 Headache, unspecified
CPT/HCPCS: 36415; 59025; 82565; 84450; 84460; 84550; 85027; 99221; G0378

== ENCOUNTER 2025-02-02 11:13 | Emergency (ER) | payer BC, SELFPAY ==
[2025-02-02 11:13] VITALS: BP 152/92; PULSE 93; RESP 14; TEMP 36.2; O2SAT 98; BMI 42.4
--- NOTE | 2025-02-02 11:46 | EX.ED.DYSGE1 ---
HPI History of Present Illness Chief Complaint: Mental Health Narrative Narrative: Patient is a 29-year-old female with past medical history anxiety, depression, gestational hypertension, gestational diabetes, PCOS, asthma who presents to the emergency department the chief complaint of depression. Patient states that she feels like her depression is worsening she states that she has a 5-month at home and notes that he is teething not sleeping well and is constantly screaming and she does not handle loud noises well. She also notes that the dog was barking a lot lately as well and she states that she will with the dog she feels extremely bad about this. She states that she had an appointment yesterday with psychiatry/her counselor and she notes that she had to reschedule this and they could not get her in till the . She notes that she did call the psychiatrist as well. Patient denies any suicidal homicidal ideations she states that she just cannot take it anymore. [facility] Medical History (Updated 02/02/25 @ 14:[address] Tavo Willis, DO) Care and examination of lactating mother Anxiety Depression Obesity Migraine headache with aura Benign intracranial hypertension Gestational HTN Anemia Restless legs Injury of back Gastric reflux Gestational diabetes Non-smoker History of lumbar puncture Polycystic disease, ovaries Asthma Home Medications ?Medication ?Instructions ?Recorded ?Last Taken ?Type bupropion HCl 150 mg 24 hr tablet, 300 mg PO DAILY anxiety/depression 05/06/23 09/09/24 History extended release escitalopram oxalate 20 mg tablet 10 mg PO DAILY anxiety/depression 08/16/24 09/09/24 History buspirone 10 mg tablet 10 mg PO 3XD anxiety/depression 09/02/24 09/09/24 History epidural administration set #1 ea 09/03/24 Unknown Rx acetaminophen 500 mg tablet 1,000 mg (2 x 500 mg) PO Q6H #0 09/05/24 09/09/24 20:00 Rx tabs ibuprofen 600 mg tablet 600 mg PO Q6H #0 tabs 09/05/24 09/09/24 17:00 Rx sennosides 8.6 mg-docusate sodium 1 - 2 tab PO DAILY #0 tabs 09/05/24 Unknown Rx 50 mg tablet (Stimulant Laxative Plus) metoclopramide HCl 10 mg tablet 10 mg PO Q6H PRN nausea and 09/09/24 Unknown Rx (Reglan) vomiting #10 tabs nifedipine 30 mg tablet,extended 30 mg PO DAILY 09/09/24 09/09/24 10:00 History release 24 hr (Procardia XL) Allergy/AdvReac Type Severity Reaction Status Date / Time fluoxetine (From Prozac) Allergy Swelling Verified 02/02/25 11:14 Family History Brother Pseudotumor cerebri Grandfather CVA (cerebral vascular accident) Surgical History (Updated 09/13/24 @ 00:02 by Giovanny Baez) Status post primary low transverse section Social History Smoking Status: Never smoker Electronic Cigarette Use: not used second hand exposure: Yes alcohol intake: current alcohol intake frequency: holidays/special occasions only substance use type: does not use ROS ROS ED ROS Narrative Constitutional: Denies headache, lightness, dizziness Eyes: Denies change visual vision blurry vision Cardiovascular: Denies chest pain Respiratory: Denies shortness of breath Abdomen: Denies nausea vomit diarrhea : Denies urinary symptoms Neurological: Denies numbness, aches, tingling Musculoskeletal: Denies back pain Skin: Denies any rashes or lesions EXAM Physical Exam Narrative Exam Narrative: General: Patient was lying in bed rest comfortably did not appear to be in acute distress Head: Atraumatic, normocephalic Eyes: PERRL bilaterally, EOMI of light, no conjunctival injection noted Neck: Soft, supple, trachea midline Cardiovascular: Regular rate and rhythm Extremities: +5/5 strength noted in the bilateral lower extremities Neurological: Patient follow commands knew that she was at [facility] year is 2024 Skin: Warm, dry, intact no rashes or lesions noted Psychiatric: Patient does have flat affect. Calm, cooperative Const Vital Signs: 02/02/25 11:13 02/02/25 13:13 Temperature 97.1 F L Temperature Source Temporal Pulse Rate 93 84 Respiratory Rate 14 15 Blood Pressure 152/92 H 120/87 H Blood Pressure Mean 112 98 Pulse Ox 98 97 Oxygen Delivery Method Room Air Room Air MDM MDM MDM Narrative Medical decision making narrative: Patient is a 29-year-old female who presented to the emergency department chief complaint depression. Patient be medically cleared and will be further evaluated by social work. On the differential diagnose includes but not limited to anxiety, depression. Patient CBC reviewed showed no evidence leukocytosis white blood count normal at 8, hemoglobin was 7.6, platelet count of 270. Patient sodium was 140, potassium normal at 4.1, creatinine was 0.92. Patient's test was negative, drug screen negative, alcohol level less than 10. Patient was evaluated by social work team. After evaluation by social work they provided resources safety plan the patient Patient would like to go home at this point time she is advised to follow-up with her psychiatrist, counselor and the resources provided to her. She is vies return with worsening symptoms or concerns. She is agreeable this plan was again she is not suicidal nor homicidal. Significant other at bedside is also agree with this plan all questions answered she was discharged home in stable condition. Lab Data Labs: Laboratory Results - last 24 hr 02/02/25 12:15 WBC 8.0 RBC 4.63 Hgb 12.6 Hct 38.5 MCV 83.2 MCH 27.2 MCHC 32.7 RDW Std Deviation 42.5 RDW Coeff of Bc 14.1 Plt Count 270 MPV 11.4 Immature Gran % (Auto) 0.200 Neut % (Auto) 70.7 H Lymph % (Auto) 22.6 [place] % (Auto) 5.0 Eos % (Auto) 0.9 Baso % (Auto) 0.6 Absolute Neuts (auto) 5.7 Absolute Lymphs (auto) 1.81 Nucleated RBC % 0 Sodium 140 Potassium 4.1 Chloride 107 Carbon Dioxide 22.2 Anion Gap 11 BUN 11 Creatinine 0.92 Estim Creat Clear Calc 103.74 Est GFR (MDRD) Non-Af 87 BUN/Creatinine Ratio 12.0 Glucose 94 Calcium 8.9 Serum , Qual NEGATIVE Urine Opiates Screen NEGATIVE U Buprenorphine Qual NEGATIVE Ur Oxycodone Screen NEGATIVE Urine Methadone Screen NEGATIVE Urine Fentanyl Screen NEGATIVE Ur Barbiturates Screen NEGATIVE Ur Phencyclidine Scrn NEGATIVE Ur Amphetamines Screen NEGATIVE U Benzodiazepines Scrn NEGATIVE Urine Cocaine Screen NEGATIVE U Cannabinoids Screen NEGATIVE Ethyl Alcohol < 10.1 Discharge Plan Triage Chief Complaint: Mental Health ED Provider: Tavo Willis Dx/Rx/DC Orders Clinical Impression: Depression, History of PCOS, GERD (gastroesophageal reflux disease) Prescriptions: No Action bupropion HCl 150 mg tablet extended release 24 hr 300 mg PO DAILY Patient Comments: take 1 tablet by mouth every morning escitalopram oxalate 20 mg tablet 10 mg PO DAILY Patient Comments: take 1 tablet by mouth once daily buspirone 10 mg tablet 10 mg PO 3XD (DME) epidural administration set Infusion Set See Rx Instructions .Route Qty: 1 0RF Rx Instructions: As directed sennosides-docusate sodium [Stimulant Laxative Plus] 8.6-50 mg Tablet 1 - 2 tab PO DAILY Qty: 0 0RF acetaminophen 500 mg Tablet 1,000 mg PO Q6H Qty: 0 0RF ibuprofen 600 mg Tablet 600 mg PO Q6H Qty: 0 0RF nifedipine [Procardia XL] 30 mg tablet extended release 24hr 30 mg PO DAILY metoclopramide HCl [Reglan] 10 mg tablet 10 mg PO Q6H PRN (Reason: nausea and vomiting) Qty: 10 0RF Primary Care Provider: Care Physician,No Primary Referrals: Care Physician,No Primary [Primary Care Provider] - Activity Restrictions/Additional Instructions: Follow-up with your doctor in outpatient setting. Follow-up with the resources provided. Return with worsening symptoms or any other concerns Print Language: Tongan Disposition Disposition: Home, Self Care
[2025-02-02 12:48] LABS: Hematocrit 38.5 % (37-47); Hemoglobin 12.6 g/dL (12.0-15.0); Immature Granulocytes Count 0.020 X10^3/uL (0.0-0.0); Mean Corp Hgb Conc 32.7 g/dL (32-36); Mean Corpuscular Volume 83.2 fL (81-99); Mean Platelet Vol. 11.4 fl (6.2-12.0); NRBC Flagged by Analyzer 0 % (0-5); Platelet Count 270 K/mm3 (150-450); RBC Distribution Width CV 14.1 % (11.6-14.6); RBC Distribution Width SD 42.5 fl (35.1-43.9); Red Blood Count 4.63 M/mm3 (4.2-5.4); White Blood Count 8.0 K/mm3 (4.4-11.0)
[2025-02-02 13:05] LABS: Internal QC Validated? YES +Cl - CLEAR BKGD; Pregnancy, Serum, hCG Quali. NEGATIVE Negative; Record Kit Lot#, Serum Preg. 0000947241
[2025-02-02 13:12] LABS: Barbiturate Urine NEGATIVE (< 200 ng/mL); Benzodiazepine Urine NEGATIVE (< 200 ng/mL); PCP Urine NEGATIVE (< 25 ng/mL); THC Urine NEGATIVE (< 50 ng/mL)
[2025-02-02 13:13] VITALS: BP 120/87; PULSE 84; RESP 15; O2SAT 97
[2025-02-02 13:21] LABS: Alcohol, Blood (Medical)-Serum < 10.1 mg/dL (<=10.0)
[2025-02-02 13:23] LABS: Anion Gap 11 (5-15); BUN 11 mg/dL (4-19); BUN/Creat Ratio 12.0 RATIO (10-20); Calcium,Total 8.9 mg/dL (7.6-11.0); Carbon Dioxide 22.2 mmol/L (21.0-32.0); Chloride 107 mmol/L (98-108); Estimated Creatinine Clearance 103.74 ml/min (50-250); Glucose 94 mg/dL (70-99); Potassium 4.1 mmol/L (3.3-5.1)
--- NOTE | 2025-02-02 13:50 | CM.ED ---
Social Work Psychiatric Assessment Reason for consult: mental health Informant(s): patient, medical records, patient's . Chief Complaint: Patient presented to [facility] ED on 02/02/25 with complaints of feeling as if patient was having a mental break down. Per triage notes, patient stated having a 5 month old baby at home who is teething and not sleeping well, leading to patient being sleep deprived as well. Patient expressed to the doctor that the 5 month old is consistently screaming and patient has realized that patient does not handle loud noises well. Per SW conversation, patient stated feeling overwhelmed and patient realized patient was neglecting self in order to care for Dakota. Throughout conversation, patient was sharing information learned during regular counseling sessions that patient was able to recall during time in the ED today. Patient stated ability to care for self in order to care for Dakota more appropriately. Patient and Wade denied any children's services history. Patient stated baseline anxiety to be at a 5 or a 6 on a scale of 1 to 10; patient's anxiety this morning was at a 10 due to everything going on as well as patient being brought to the hospital. Patient stated baseline depression to be a 4 on a scale of 1 to 10; patient's depression this morning was at a 6 or 7 this morning due to belief that patient was not a good mother because Dakota would not sleep. Patient stated having nightmares that are making sleeping difficult and stated patient's appetite has been all off due to starting Methylphenidate and control for PMDD. Patient stated feeling hopeless and helpless this morning, but stated feeling better now after taking deep breaths and being able to take some moments to self, get out of the house, etc. Patient stated ability to have Wade's family that live locally watch Dakota for a short time in order to get that time to self on a regular basis. Marital/Social History/Sexual Orientation/Gender Identity: patient is a 29 year old female who is to patient's , Jn. Together, patient and Wade have a 5 month old son, Dakota. Living Situation: patient, Wade, and Dakota live in a home with Wade's parents. Along with Wade's parents, multiple of Wade's family members live in the surrounding homes along the street. Support/Resources: patient stated having Wade, Wade's family members, patient's best friend Liz, and other friends who are supportive. History: none Education and Employment History: patient states having a high school diploma with a few semesters of college. 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 Mental Health Treatment/History: patient reports mental health diagnoses of PTSD, ADHD, PMDD, anxiety, and depression. Patient states receiving counseling biweekly at [facility] with Desiree as well as receiving psychiatry services with [facility] through [phone]. Patient reports having a psychiatry appointment today that was canceled due to patient presenting to the hospital. Patient reports taking Wellbutrin, Buspar, Lexapro, and Methylphenidate. Patient states starting Methylphenidate over the last month due to just being diagnosed with ADHD recently. Patient denies any inpatient mental health treatment, though states this was always threatened by patient's mother when patient was younger. Triggers/Stressors to mental health: patient states patient's biological family to be a stressor and denies having much contact with them. Patient states Wade's father has dealt with prostate cancer since 2022 and Wade's mother had a biopsy yesterday which have been stressors for patient and Wade recently. Coping Skills: patient identified crying, sleep, YouTube, music, and talking with friends (both in real life and online) to be coping strategies for patient. History of Abuse (physical/sexual/verbal/emotional): patient identified being bullied extremely in high school and neglected as a child. Substance Abuse Current/Historical: patient stated alcoholism runs in patient's biological family, so while patient admits to drinking alcohol in the past, patient states not drinking currently. Risk to Self/Others: ? Suicidal (thought/plan/intent/attempt): see C-SSRS for details. Patient denies any current suicidal ideation, but admits to historical attempts as a teenager. ? Access to Lethal Means: patient states having access to kitchen knives and patient's medications. Patient states having guns in the home, but Wade states the firearms are either unloaded or partially disassembled. ? Homicidal (thought/plan/intent/attempt): patient denies any current or historical homicidal thoughts, plans, intent, or attempts. ? History of Violence (self/others/objects): patient denies any current or historical violence toward others or objects. Patient states historical violence toward self via cutting as a teenager. Mental Status Exam: ??? Orientation: patient oriented to time, place, and person. ??? Memory: good Appearance/General Behavior: clean/appropriate Mood/Affect: appropriate, slightly anxious at times. Communication Pattern: responds to questions, good eye contact Thought Process: appropriate General Intellectual Functioning: average Judgment: good Insight: good [place] SS[place] SUICIDAL IDEATION Ask questions 1 and 2. If both are negative, proceed to ?Suicidal Behavior? section. If the answer question 2 is yes, ask questions 3, 4, 5.? If the answer to question 1 and/or 2 is ?yes?, complete ?Intensity of Ideation? section below. 1. Wish to be ? Subject endorses thoughts about a wish to be or not alive anymore or wish to fall asleep and not wake up. Have you wished you were or wished you could go to sleep and not wake up? Lifetime: Time He/She [place] Most Suicidal: ?yes Past 1 month: no Please Describe if yes: ?patient stated having general thoughts of wanting to as a teenager. 2. Non-Specific Active Suicidal Thoughts General, non-specific thoughts of wanting to end one?s life/commit suicide (e.g., ?I?ve thought about killing myself?) without thoughts of ways to kills oneself/associated methods, intent, or plan during the assessment period.? Have you actually had any thoughts of killing yourself? Lifetime: Time He/She [place] Most Suicidal: ?yes Past 1 month: no Please Describe if yes: patient stated having thoughts of killing self as a teenager. 3. Active Suicidal Ideation with Any Methods (Not Plan) without Intent to Act Subject endorses thoughts of suicide and has thought of at least one method during the assessment period.? This is different than a specific plan with time, place, or method details worked out (e.g., thought of method to kills self but not a specific plan).? Includes person who would say ?I thought about thanking an overdose, but I never made a specific plan as to when, where or how. I would actually do it, and I would never go through with it.? Have you been thinking about how you might do this? Lifetime: Time He/She [place] Most Suicidal: ?yes Past 1 month:? no Please Describe if yes: patient stated having thoughts of cutting self and hanging self as a teenager. 4. Active Suicidal Ideation with Some Intent to Act, without Specific Plan Active suicidal thoughts of kills oneself fand subject reports having some intent to act on such thoughts, as opposed to ?I have the thoughts but I definitely will not do anything about them.? Have you had these thoughts and had some intention of acting on them? Lifetime: Time He/She [place] Most Suicidal: yes Past 1 month: no Please Describe if yes: patient stated having thoughts with intention of cutting self and hanging self as a teenger. 5. Active Suicidal Ideation with Specific Plan and Intent Thoughts of kills oneself with details of plan fully or partially worked out and subject has some intent to care it out. Have you started to work out or worked out the details of how to kill yourself? Do you intend to carry out this plan? Lifetime: Time He/She [place] Most Suicidal: yes Past 1 month: ? no Please Describe if yes: patient stated having thoughts with a plan of cutting self and hanging self as a teenager. INTENSITY OF IDEATION The following feature should be rated with respect to the most sever type of ideation (i.e., 1-5 from above, with 1 being the least severe and 5 being the most severe). Ask about time he/she/they were feeling the most suicidal.? Lifetime - Most Severe Ideation: Type # (1-5): Description: Recent - Most Severe Ideation: Type # (1-5): Description: Frequency How many times have you had these thoughts? Lifetime: (1) Less than once a week??? (2) Once a week?? (3)? 2-5 times in week??? (4) Daily or almost daily??? (5) Many times each day Recent, Past 1 month:? (1) Less than once a week??? (2) Once a week?? (3)? 2-5 times in week??? (4) Daily or almost daily??? (5) Many times each day Duration When you have the thoughts, how long do they last? Lifetime: (1) Fleeting - few seconds or minutes? (2) Less than 1 hour/some of the time? (3) 1-4 hours/a lot of time? 4) 4-8 hours/most of day? (5) More than 8 hours/persistent or continuous Recent, Past 1 month:? (1) Fleeting - few seconds or minutes? (2) Less than 1 hour/some of the time? (3) 1-4 hours/a lot of time? 4) 4-8 hours/most of day? (5) More than 8 hours/persistent or continuous Controllability Could/can you stop thinking about killing yourself or wanting to if you want to? Lifetime:? (1) Easily able to control thoughts?? (2) Can control thoughts with little difficulty??? (3) Can control thoughts with some difficulty??? 4) Can control thoughts with a lot of difficulty? (5) Unable to control thoughts?? (0) Does not attempt to control thoughts Recent, Past 1 month: (1) Easily able to control thoughts?? (2) Can control thoughts with little difficulty??? (3) Can control thoughts with some difficulty??? 4) Can control thoughts with a lot of difficulty? (5) Unable to control thoughts?? (0) Does not attempt to control thoughts Deterrents Are there things - anyone or anything (e.g., family, latter day, pain of ) - that stopped you from wanting to or acting on thoughts of committing suicide? Lifetime:? (1) Deterrents definitely stopped you from attempting suicide? (2) Deterrents probably stopped you?? (3) Uncertain that deterrents stopped you? (4) Deterrents most likely did not stop you? (5) Deterrents definitely did not stop you?? 0) Does not apply??? Recent:??? (1) Deterrents definitely stopped you from attempting suicide? (2) Deterrents probably stopped you?? (3) Uncertain that deterrents stopped you? (4) Deterrents most likely did not stop you? (5) Deterrents definitely did not stop you?? 0) Does not apply??? Reasons for Ideation What sort of reasons did you have for thinking about wanting to or killing yourself? Was it to end the pain or stop the way you were feeling (in other words you couldn?t go on living with this pain or how you were feeling) or was it to get attention, revenge or a reaction from others? Or both? Lifetime: (1) Completely to get attention, revenge or a reaction from?? (2) Mostly to get attention, revenge or a reaction from others? (3) Equally to get attention, revenge or a reaction from others? and to end/stop the pain?? ( 4) Mostly to end or stop the pain (you couldn?t go on living with the pain or how you were feeling)??? (5) Completely to end or stop the pain (you couldn?t go on living with the pain or? how you were feeling)??? (0)? Does not apply? Recent: (1) Completely to get attention, revenge or a reaction from?? (2) Mostly to get attention, revenge or a reaction from others? (3) Equally to get attention, revenge or a reaction from others? and to end/stop the pain??? (4) Mostly to end or stop the pain (you couldn?t go on living with the pain or how you were feeling)?? (5) Completely to end or stop the pain (you couldn?t go on living with the pain or? how you were feeling)?? (0)? Does not apply? SUICIDAL BEHAVIOR Actual Attempt: A potentially self-injurious act committed with at least some wish to , as a result of act.? Behavior was in part thought of as method to kill oneself.? Intent does not have to be 100%.? If there is any intent/desire to associated with the act, then it can be considered an actual suicide attempt.? There does not have to be any injury of harm, just the potential for injury or harm.? If person pulls trigger while gun is in mouth, but gun is broken so no injury results, this is considered an attempt.? Inferring intent:? Even if an individual denies intent/wish to , it may be inferred clinically from the behavior or circumstances.? For example, a highly lethal act that is clearly not an accident so no other intent but suicide can be inferred (e.g. gunshot to head, jumping from window of a high floor/story).? Also, if someone denies intent to , but they thought that what they did could be lethal, intent may be inferred.? Have you made a suicide attempt? Have you done anything to harm yourself? Have you done anything dangerous where you could have ? What did you do? Did you as a way to end your life? Did you want to (even a little) when you ? Were you trying to end your life when you ? Or did you think it was possible you could have from ? Or did you do it purely for other reasons/without ANY intention of killing yourself like to relieve stress, feel better, get sympathy, or get something else to happen)? (Self -Injurious Behavior without suicidal intent) Lifetime: yes Past 3 months: no If yes, describe: patient stated making multiple suicide attempts as a teenager, including cutting and hanging self. Total # of Attempts in His/Her Lifetime: unable to assess Total # of attempts in Past 3 months: N/A Has person engaged in Non-Suicidal Self-Injurious Behavior? Lifetime: yes Past 3 months: no Interrupted Attempt: When the person is interrupted (by an outside circumstance) from starting the potentially self-injurious act (if not for that, actual attempt would have occurred).? Overdose: Person has pills in hand but is stopped from ingesting. Once they ingest any pills, this becomes an attempt rather than an interrupted attempt. Shooting: Person has gun pointed toward self, gun is taken away by someone else, or is somehow prevented from pulling trigger. Once they pull the trigger, even if the gun fails to fire, it is an attempt. Jumping: Person is poised to jump, is grabbed and taken down from ledge.? Hanging: Person has noose around neck but has not yet started to hang self -is stopped from doing so.? Has there been a time when you started to do something to end your life but someone or something stopped you before you did anything? Lifetime: no Past 3 months: no If yes, describe: ?N/A Total # of interrupted attempts in His/Her Lifetime: N/A Total # of interrupted attempts in Past 3 months: N/A Aborted or Self-Interrupted Attempt:? When person begins to take steps toward making a suicide attempt, but stops themselves before they have actually engaged in any self-destructive behavior. Examples are like interrupted attempts, except that the individual stops him/herself, instead of being stopped by something else. Has there been a time when you started to do something to try to end your life, but you stopped yourself before you did anything? Lifetime: yes Past 3 months: no If yes, describe: patient stated all of patient's attempts were aborted due to getting scared. Total # of aborted or self-interrupted attempts in His/Her Lifetime: Total # of aborted or self-interrupted attempts in Past 3 months: N/A Preparatory Acts or Behavior:? Acts or preparation towards imminently making a suicide attempt. This can include anything beyond a verbalization or thought, such as assembling a specific method (e.g., buying pills, purchasing a gun) or preparing for one?s by suicide (e.g., giving things away, writing a suicide note). Have you taken any steps towards making a suicide attempt or preparing to kill yourself (such as collecting pills, getting a gun, giving valuables away or writing a suicide note)? Lifetime: yes Past 3 months: no If yes, describe: patient stated having written multiple suicide notes prior to making suicide attempts as a teenager. Total # of preparatory acts in His/Her Lifetime: Total # of preparatory acts in Past 3 months: N/A Lethality/Medical Damage:??? 0. No physical damage or very minor physical damage (e.g., surface scratches). 1. Minor physical damage (e.g., lethargic speech; first-degree moore; mild bleeding; sprains). 2. Moderate physical damage; medical attention needed (e.g., conscious but sleepy, somewhat responsive; second-degree moore; bleeding of major vessel). 3. Moderately severe physical damage; medical hospitalization and likely intensive care required (e.g., comatose with reflexes intact; third-degree moore less than 20% of body; extensive blood loss but can recover; major fractures). 4. Severe physical damage; medical hospitalization with intensive care required (e.g., comatose without reflexes; third-degree moore over 20% of body; extensive blood loss with unstable vital signs; major damage to a vital area). 5. Most Recent attempt Date: Code: Most Lethal Attempt Date: Code: Initial/First Attempt Date: Code: Potential Lethality: Only Answer if Actual Lethality=0 Likely lethality of actual attempt if no medical damage (the following examples, while having no actual medical damage, had potential for very serious lethality: put gun in mouth and pulled the trigger but gun fails to fire so no medical damage; laying on train tracks with oncoming train but pulled away before run over). 0 = Behavior not likely to result in injury 1 = Behavior likely to result in injury but not likely to cause 2 = Behavior likely to result in despite available medical care Most Recent Attempt Code: Most Lethal Attempt Code: Initial/First Attempt Code: Assessment Summary: due to patient's multiple supports in place including psychiatric care and counseling, as well as patient having family nearby, a son identified to live for, patient naming multiple healthy coping strategies and willingness to safety plan, patient would benefit from safety planning with follow up psychiatric and counseling care in an outpatient setting. Spoke with doctor who agrees. Plan: safety plan home ( at bedside in agreement). Laurence Kohler, FOOD SERVICE ATTENDANT, [employer]
[2025-02-02 14:09] VITALS: BP 128/70; PULSE 80; RESP 15; TEMP 36.8; O2SAT 97
--- NOTE | 2025-02-02 14:52 | CM.ED ---
Social work After mental health assessment completed, patient presented the following resources: [employer] brochure, [facility] Provider Directory, and San[facility] Cano information. Patient denied further needs at this time. Laurence Kohler, FACTORY HAND, [employer]
== END 2025-02-02 14:11 | disposition home or self-care (01) ==
PROVIDERS: Emergency Provider Emergency Medicine; Visit Provider Emergency Medicine
DX: F32.A Depression, unspecified (principal); F41.9 Anxiety disorder, unspecified; Z79.899 Other long term (current) drug therapy; K21.9 Gastro-esophageal reflux disease without esophagitis; Z87.42 Personal history of other diseases of the female genital tract
CPT/HCPCS: 36415; 80048; 80307; 82077; 84703; 85025; 99282